=== PATIENT | female | born 1945 | race Caucasian/White ===

== ENCOUNTER 2017-10-25 13:35 | Outpatient (CLI) | payer MEDICARE, BC ==
--- NOTE | 2017-10-25 14:35 | RAD ---
CHEST TWO VIEWS: History: Chest pain. Comparison: 10-14-15 FINDINGS: Lungs are without focal consultation, pneumothorax or effusion. Cardiac silhouette and mediastinal co ntours are within normal limits. Likely some right upper quadrant surgical clips. IMPRESSION: No intrathoracic abnormality. POS: [facility]
== END 2017-10-25 13:36 | disposition home or self-care (01) ==
LOC: RAD 13:35
PROVIDERS: ATTEND Internal Medicine Pulmonary Disease
DX: R06.00 Dyspnea, unspecified (principal)
CPT/HCPCS: 71046

== ENCOUNTER 2018-02-06 10:49 | Outpatient (CLI) | payer MEDICARE, BC ==
--- NOTE | 2018-02-06 12:04 | RAD ---
CHEST TWO VIEWS: HISTORY: Cough. COMPARISON: Chest radiograph from 10/25/2017. FINDINGS: Heart size is mildly enlarged. Lungs are slightly hyperinflated. No pneumothorax. No effusion. No acute osseous abnormality. Chronic interstitial markings in the lung bases. IMPRESSION: Chronic findings. No acute intrathoracic abnormality. POS: [facility]
== END 2018-02-06 10:50 | disposition home or self-care (01) ==
LOC: BICRAD 10:49
PROVIDERS: ATTEND Physician Assistant Medical
DX: J44.9 Chronic obstructive pulmonary disease, unspecified (principal); R05 Cough
CPT/HCPCS: 71046

== ENCOUNTER 2018-11-06 08:55 | Outpatient (CLI) | payer MEDICARE, BC ==
--- NOTE | 2018-11-06 09:35 | CT ---
CT ABDOMEN AND PELVIS WITH IV CONTRAST 11/06/2018 CLINICAL INFORMATION: Left lower quadrant abdominal pain, diarrhea, and indigestion. COMPARISON: None. Technique: Multiple contiguous axial CT images are obtained through the abdomen and pelvis with IV contrast. Cor onal reformatted images are provided. FINDINGS: Lower Chest: within normal limits. Vessels: Vascular calcifications are seen in the abdominal aorta and involving the iliac arteries. Abdomen: Portal vein:Patent Gallbladder: Surgically absent. Liver: within normal limits. Spleen: within normal limits. Pancreas: within normal limits. Adrenals: within normal limits. Kidneys: within normal limits. Bowel: Normal caliber. Appendix: The appendix is visualized and normal in caliber. Peritoneum: No ascites or free air; no fluid collection. Mesentery and Retroperitoneum: No enlarged mesenteric or retroperitoneal lymph nodes. Abdominal Wall: within normal limits. Pelvis: Reproductive Organs: Evidence of hysterectomy. Pelvis within normal limits. Bladder: Decompressed but otherwise grossly within normal limits. Bones: Degenerative changes are seen in the spine. Bilateral hip osteoarthritis is present. A sclerot ic density is seen within the right iliac bone demonstrating characteristics most compatible with a bone island. IMPRESSION: 1. No acute findings are seen in the abdomen or pelvis. 2. Cholecystectomy. 3. Hysterectomy. 4. Vascular calcifications.
[2018-11-06] MEDS ORDERED: ISOVUE-370 76%-LOCM 1 ML ONE (11:10)
== END 2018-11-06 08:56 | disposition home or self-care (01) ==
LOC: BICCT 08:55
PROVIDERS: ATTEND Physician Assistant Medical
DX: K21.9 Gastro-esophageal reflux disease without esophagitis (principal); K52.9 Noninfective gastroenteritis and colitis, unspecified; R10.32 Left lower quadrant pain; I70.0 Atherosclerosis of aorta; Z90.49 Acquired absence of other specified parts of digestive tract; Z90.710 Acquired absence of both cervix and uterus
CPT/HCPCS: 74177; 82565; Q9966

== ENCOUNTER 2019-12-05 11:05 | Outpatient (CLI) | payer MEDICARE, BC ==
--- NOTE | 2019-12-05 12:26 | RAD ---
RADIOGRAPH CHEST 2 VIEWS: DATE: 12/05/2019 HISTORY: 74-year-old female with cough and dyspnea FINDINGS: There is no airspace density, pulmonary edema, pleural effusion, pneumothorax, or cardiomegaly. IMPRESSION: No acute cardiopulmonary findings.
== END 2019-12-05 11:06 | disposition home or self-care (01) ==
LOC: BICRAD 11:05
PROVIDERS: ATTEND Internal Medicine Pulmonary Disease
DX: R06.00 Dyspnea, unspecified (principal)
CPT/HCPCS: 71046

== ENCOUNTER 2020-05-02 18:49 | Inpatient (IN) | payer MEDICARE, BC ==
[2020-05-02] MEDS ORDERED: Ondansetron PF 4 MG/2 ML Vial ONE (20:02)
[2020-05-02] MEDS ORDERED: Meclizine HCl 25 MG TAB ONE (20:02)
[2020-05-02 20:24] LABS: #Eosinphils 0.2 thou/uL (0.0-0.7); #Lymphocytes 0.8 thou/uL (1.20-3.40); #Monocytes 0.4 thou/uL (0.11-0.59); #Neutrophils 4.6 thou/uL (1.40-6.50); %Basophils 0.2 % (0.0-1.0); %Eosinophils 2.8 % (0.0-10.0); %Lymphocytes 13.2 % (21.0-51.0); %Monocytes 7.1 % (0.0-10.0); %Neutrophils 76.7 % (42.0-75.0); Hemoglobin 12.8 g/dL (12.0-16.0); Mean Corpuscular HGB CONC 32.8 g/dL (32.0-36.0); Mean Corpuscular Hemoglobin 29.5 pg (27.0-31.0); Mean Corpuscular Volume 89.9 fL (78.0-98.0); Platelet Count 191 thou/uL (130-400); RBC Distribution Width 12.5 % (11.5-14.5); Red Blood Cell (RBC) Count 4.35 mill/uL (4.20-5.40); White Blood Cell (WBC) Count 6.1 thou/uL (4.8-10.8)
[2020-05-02 20:31] LABS: PTT 31.5 sec (22.9-36.1); Prothrombin Time 13.3 sec (12.0-14.7)
[2020-05-02 20:50] LABS: ALT (SGPT) 15 U/L (8-55); AST (SGOT) 26 U/L (5-34); Albumin 3.4 g/dL (3.4-4.8); Alkaline Phosphatase 84 U/L (40-110); Anion Gap 14 mmol/L (10-20); BUN (Urea Nitrogen) Less than 4 mg/dL (9.8-20.1); Bilirubin, Total 0.4 mg/dL (0.2-1.2); Calc. Creatinine Clearance 0 mL/min (70-130); Calcium 8.4 mg/dL (7.8-10.44); Carbon Dioxide 27 mmol/L (23-31); Chloride 105 mmol/L (98-107); Globulin 3.5 g/dL (2.4-3.5); Glucose 108 mg/dL (83-110); Potassium 4.5 mmol/L (3.5-5.1); Protein, Total 6.9 g/dL (5.8-8.1); Sodium 141 mmol/L (136-145)
[2020-05-02] MEDS ORDERED: Promethazine HCl 25 MG/ML VIAL ONE (22:05)
[2020-05-02] MEDS ORDERED: Lidocaine 1% w/Epinephrine 1:100K 20 ML VIAL ONE (22:33)
[2020-05-02] MEDS ORDERED: Diazepam 10 MG/2 ML SYRINGE ONE ×2 (22:58→23:45)
[2020-05-02] MEDS ORDERED: Ondansetron ODT 4 MG TAB PO PRN (23:10)
[2020-05-02] MEDS ORDERED: Ondansetron PF 4 MG/2 ML Vial IVP PRN (23:10)
[2020-05-02] MEDS ORDERED: Carvedilol 6.25 MG TAB PO SCH (23:30)
[2020-05-02 23:33] LABS: Phosphorus 3.3 mg/dL (2.3-4.7)
[2020-05-02 23:54] LABS: Hemoglobin A1c 5.6 % (4.0-6.0)
[2020-05-02 23:58] LABS: Cardiac Risk 3.4 (Less than 4.5)
[2020-05-03] MEDS ORDERED: Morphine 4 MG/ML VIAL ONE (00:09)
[2020-05-03] MEDS ORDERED: Lidocaine 2% PF 5 ML VIAL ONE (00:39)
[2020-05-03] MEDS ORDERED: Lidocaine 1% PF 5 ML VIAL ONE ×2 (00:40→00:41)
[2020-05-03] MEDS ORDERED: Aspirin Chewable 81 MG TAB ONE (00:45)
[2020-05-03] MEDS ORDERED: Atorvastatin Calcium 40 MG TAB PO SCH (01:00)
[2020-05-03] MEDS ORDERED: Boostrix 0.5 ML (Tdap) VIAL ONE (01:27)
[2020-05-03] MEDS ORDERED: Bacitracin 1 PK ONE ×2 (01:32→01:33)
[2020-05-03] MEDS ORDERED: CEFAZOLIN 1 GM VIAL ONE ×2 (01:47→01:49)
[2020-05-03 03:21] VITALS: BMI 33.5
[2020-05-03 04:57] LABS: Bacteria/HPF None Seen HPF (None Seen); Bilirubin Negative (Negative); Blood, Urine Negative (Negative); Clarity Clear (Clear); Glucose, Urine (Dipstick) Normal (Negative); Ketone, Urine 10 mg/dL (Negative); Leukocyte 500 Leu/uL (Negative); Nitrite Negative (Negative); Protein, Urine (Dipstick) Negative (Neg-Trace); RBC/HPF None Seen HPF (0-3); Specific Gravity, Urine 1.013 (1.002-1.036); Squamous Epithelial 0-3 HPF (0-3); Urobilinogen Normal mg/dL (Less than 2); WBC/HPF 21-50 HPF (0-3)
[2020-05-03 04:59] LABS: Hemoglobin 11.6 g/dL (12.0-16.0); Mean Corpuscular HGB CONC 33.3 g/dL (32.0-36.0); Mean Corpuscular Hemoglobin 29.9 pg (27.0-31.0); Mean Corpuscular Volume 89.9 fL (78.0-98.0); Mean Platelet Volume 8.1 fL (7.4-10.4); Platelet Count 183 thou/uL (130-400); RBC Distribution Width 12.2 % (11.5-14.5); Red Blood Cell (RBC) Count 3.89 mill/uL (4.20-5.40); White Blood Cell (WBC) Count 6.4 thou/uL (4.8-10.8)
[2020-05-03 05:04] LABS: Urine Culture Reflex Yes Yes
[2020-05-03] MEDS: Levothyroxine 150 MCG TAB PO SCH (06:06)
[2020-05-03] MEDS: Acetaminophen 325 MG TAB PO PRN ×3 (06:08→20:36)
[2020-05-03] MEDS ORDERED: cefTRIAXone\\ROCEPHIN 1 GM in Sodium Chloride 0.9% 100 ML IVPB SCH (08:45)
[2020-05-03] MEDS ORDERED: Apixaban 5 MG TAB PO SCH (09:00)
[2020-05-03] MEDS: Aspirin 325 MG TAB PO SCH (10:33)
[2020-05-03] MEDS: Escitalopram Oxalate 10 mg Tablet PO SCH (10:34)
[2020-05-03] MEDS: Carvedilol 6.25 MG TAB PO SCH ×2 (10:34→20:35)
[2020-05-03] MEDS: Ramipril 5 MG CAP PO SCH (10:35)
[2020-05-03 13:47] LABS: SARS-CoV-2 NAA Rapid Test Not Detected (NotDetected)
[2020-05-03 18:18] LABS: Troponin I 0.027 ng/mL (< 0.028)
[2020-05-03] MEDS: Atorvastatin Calcium 40 MG TAB PO SCH (20:35)
[2020-05-04] MEDS: Levothyroxine 150 MCG TAB PO SCH (05:56)
[2020-05-04 06:59] LABS: #Eosinphils 0.5 thou/uL (0.0-0.7); #Lymphocytes 0.9 thou/uL (1.20-3.40); #Monocytes 0.6 thou/uL (0.11-0.59); #Neutrophils 3.8 thou/uL (1.40-6.50); %Basophils 0.6 % (0.0-1.0); %Eosinophils 8.7 % (0.0-10.0); %Lymphocytes 15.3 % (21.0-51.0); %Monocytes 9.8 % (0.0-10.0); %Neutrophils 65.7 % (42.0-75.0); Hemoglobin 11.8 g/dL (12.0-16.0); Mean Corpuscular Volume 90.6 fL (78.0-98.0); Mean Platelet Volume 7.8 fL (7.4-10.4); Platelet Count 190 thou/uL (130-400); RBC Distribution Width 12.7 % (11.5-14.5); Red Blood Cell (RBC) Count 4.06 mill/uL (4.20-5.40); White Blood Cell (WBC) Count 5.7 thou/uL (4.8-10.8)
[2020-05-04 07:16] LABS: Anion Gap 13 mmol/L (10-20); BUN (Urea Nitrogen) 12 mg/dL (9.8-20.1); Calc. Creatinine Clearance 84 mL/min (70-130); Calcium 8.2 mg/dL (7.8-10.44); Carbon Dioxide 23 mmol/L (23-31); Chloride 106 mmol/L (98-107); Glucose 97 mg/dL (83-110); Sodium 138 mmol/L (136-145)
[2020-05-04] MEDS: Escitalopram Oxalate 10 mg Tablet PO SCH (09:26)
[2020-05-04] MEDS: Aspirin 325 MG TAB PO SCH (09:26)
[2020-05-04] MEDS: Carvedilol 6.25 MG TAB PO SCH ×2 (09:26→20:59)
[2020-05-04] MEDS: Ramipril 5 MG CAP PO SCH (09:26)
[2020-05-04] MEDS ORDERED: hydrOXYzine 25 MG TAB PO SCH (09:45)
[2020-05-04] MEDS: Acetaminophen 325 MG TAB PO PRN (18:23)
[2020-05-04] MEDS: Apixaban 5 MG TAB PO SCH (20:59)
[2020-05-04] MEDS: Atorvastatin Calcium 40 MG TAB PO SCH (20:59)
[2020-05-05] MEDS: Acetaminophen 325 MG TAB PO PRN (02:20)
[2020-05-05] MEDS ORDERED: Melatonin 3 MG TAB PO PRN (02:36)
[2020-05-05] MEDS ORDERED: Baclofen 10 MG TAB PO SCH (02:45)
[2020-05-05] MEDS: Levothyroxine 150 MCG TAB PO SCH (05:36)
[2020-05-05] MEDS: Ramipril 5 MG CAP PO SCH (08:45)
[2020-05-05] MEDS: Escitalopram Oxalate 10 mg Tablet PO SCH (08:46)
[2020-05-05] MEDS: Apixaban 5 MG TAB PO SCH (08:46)
[2020-05-05] MEDS: Carvedilol 6.25 MG TAB PO SCH (08:46)
[2020-05-05] MEDS ORDERED: Aspirin 81 mg Enteric Coated Tablet PO SCH (09:00)
[2020-05-05] MEDS ORDERED: Carvedilol 6.25 MG TAB PO SCH ×2 (10:15→17:00)
[2020-05-05 11:57] VITALS: TEMP 98
[2020-05-05 16:09] VITALS: BP 133/56
== END 2020-05-05 14:36 | DRG 41 ==
LOC: ERS 18:49 → 2SE 22:47 → OBSVTOIN 05-03 15:35
PROVIDERS: ADMIT Family Medicine; ATTEND Family Medicine
PROC: 0LQ80ZZ Repair Left Hand Tendon, Open Approach (ICD-10-PCS; principal; 2020-05-03)
PROC: 0XQPXZZ Repair Left Index Finger, External Approach (ICD-10-PCS; 2020-05-03)
PROC: 0XQWXZZ Repair Left Little Finger, External Approach (ICD-10-PCS; 2020-05-03)
DX: I63.511 Cerebral infarction due to unspecified occlusion or stenosis of right middle cerebral artery (principal); N39.0 Urinary tract infection, site not specified; S66.822A Laceration of other specified muscles, fascia and tendons at wrist and hand level, left hand, initial encounter; G81.94 Hemiplegia, unspecified affecting left nondominant side; Z23 Encounter for immunization; Z20.822 Contact with and (suspected) exposure to COVID-19; J44.9 Chronic obstructive pulmonary disease, unspecified; K21.9 Gastro-esophageal reflux disease without esophagitis; E03.9 Hypothyroidism, unspecified; E78.5 Hyperlipidemia, unspecified; R20.2 Paresthesia of skin; E78.00 Pure hypercholesterolemia, unspecified; W18.30XA Fall on same level, unspecified, initial encounter; F17.210 Nicotine dependence, cigarettes, uncomplicated; R29.705 NIHSS score 5; Y92.002 Bathroom of unspecified non-institutional (private) residence as the place of occurrence of the external cause; Z88.8 Allergy status to other drugs, medicaments and biological substances; Z79.01 Long term (current) use of anticoagulants; Z79.82 Long term (current) use of aspirin; Z79.890 Hormone replacement therapy; Z90.49 Acquired absence of other specified parts of digestive tract; Z90.710 Acquired absence of both cervix and uterus; Z79.899 Other long term (current) drug therapy
CPT/HCPCS: 0240U; 12001; 36415; 70450; 70551; 71045; 72125; 80048; 80053; 80061; 81001; 83036; 83735; 84100; 84443; 84484; 85007; 85025; 85027; 85610; 85730; 87086; 90471; 90715; 93005; 93010; 93306; 93880; 94640; 96365; 96375; 96376; G0378; J0690; J0696; J2001; J2270; J2405; J2550; J3360; J3490; J7620

== ENCOUNTER 2020-06-30 10:18 | Outpatient (CLI) | payer MEDICARE, BC | END 2020-06-30 10:19 | disposition home or self-care (01) | LOC: BICRAD 10:18 | PROVIDERS: ATTEND Internal Medicine Pulmonary Disease | DX: R06.00 Dyspnea, unspecified (principal) | CPT/HCPCS: 71046 ==

== ENCOUNTER → 2020-08-03 | Day surgery (SDC) | payer MEDICARE, BC ==
[2020-08-02 14:09] VITALS: BMI 32.1
== END ==
LOC: SDC 10:39
PROVIDERS: ATTEND Internal Medicine Cardiovascular Disease
DX: I48.0 Paroxysmal atrial fibrillation (principal); I48.92 Unspecified atrial flutter; I35.1 Nonrheumatic aortic (valve) insufficiency; I10 Essential (primary) hypertension; E78.5 Hyperlipidemia, unspecified; E03.9 Hypothyroidism, unspecified; J44.9 Chronic obstructive pulmonary disease, unspecified; Z53.8 Procedure and treatment not carried out for other reasons; Z86.73 Personal history of transient ischemic attack (TIA), and cerebral infarction without residual deficits; Z87.891 Personal history of nicotine dependence; Z79.01 Long term (current) use of anticoagulants; Z79.82 Long term (current) use of aspirin; Z79.899 Other long term (current) drug therapy; Z88.5 Allergy status to narcotic agent
CPT/HCPCS: 93005; 93010

== ENCOUNTER 2022-09-20 17:38 | Inpatient (IN) | payer MEDICARE, BC ==
[2022-09-20 18:11] LABS: #Monocytes 0.5 thou/uL (0.11-0.59); %Basophils 0.3 % (0.0-1.0); %Eosinophils 0.1 % (0.0-10.0); %Lymphocytes 8.5 % (21.0-51.0); %Monocytes 4.5 % (0.0-10.0); Hematocrit 39.2 % (36.0-47.0); Hemoglobin 12.5 g/dL (12.0-16.0); Mean Corpuscular HGB CONC 31.9 g/dL (32.0-36.0); Mean Corpuscular Hemoglobin 27.8 pg (27.0-31.0); Mean Corpuscular Volume 87.1 fl (78.0-98.0); Mean Platelet Volume 10.2 fL (7.4-10.4); Platelet Count 300 10x3/uL (130-400); RBC Distribution Width 14.1 % (11.5-14.5); White Blood Cell (WBC) Count 10.4 10x3/uL (4.8-10.8)
[2022-09-20 18:24] LABS: INR-International Normal Ratio 1.1; PTT 27.6 sec (22.9-36.1); Prothrombin Time 14.6 sec (12.0-14.7)
[2022-09-20 19:00] LABS: Bacteria/HPF None Seen HPF (None Seen); Bilirubin Negative (Negative); Blood, Urine Negative (Negative); CAUTI Indications for Culture Dysuria,urgency,freq; Clarity Clear (Clear); Glucose, Urine (Dipstick) Normal (Negative); Ketone, Urine Negative (Negative); Leukocyte Negative Leu/uL (Negative); Nitrite Negative (Negative); Protein, Urine (Dipstick) 10 mg/dL (Neg-Trace); RBC/HPF 0-3 HPF (0-3); Specific Gravity, Urine 1.027 (1.002-1.036); Squamous Epithelial 0-3 HPF (0-3); WBC/HPF 0-3 HPF (0-3)
[2022-09-20 19:03] LABS: Urine Culture Reflex No No
[2022-09-20 19:09] LABS: ALT (SGPT) 11 U/L (8-55); AST (SGOT) 15 U/L (5-34); Albumin 3.6 g/dL (3.4-4.8); Alkaline Phosphatase 49 U/L (40-110); Anion Gap 13 mmol/L (10-20); BUN (Urea Nitrogen) 21 mg/dL (9.8-20.1); Bilirubin, Total 0.3 mg/dL (0.2-1.2); CK (CPK) 39 U/L (29-168); Calc. Creatinine Clearance 0 mL/min (70-130); Calcium 8.8 mg/dL (7.8-10.44); Carbon Dioxide 29 mmol/L (23-31); Chloride 103 mmol/L (98-107); Estimated GFR 62; Globulin 2.9 g/dL (2.4-3.5); Glucose 76 mg/dL (83-110); Lipase 23 U/L (8-78); Protein, Total 6.5 g/dL (5.8-8.1); Sodium 140 mmol/L (136-145)
[2022-09-20] MEDS ORDERED: Furosemide 40 MG/4 ML VIAL ONE (19:33)
[2022-09-20 21:44] VITALS: BMI 31.9
[2022-09-20 22:29] LABS: Troponin I 0.014 ng/mL (< 0.028)
[2022-09-20] MEDS ORDERED: Furosemide 20 MG TAB PO PRN (22:58)
[2022-09-21 00:36] LABS: Troponin I 0.038 ng/mL (< 0.028)
[2022-09-21 04:27] LABS: #Eosinphils 0.1 thou/uL (0.0-0.7); #Monocytes 0.8 thou/uL (0.11-0.59); #Neutrophils 7.1 thou/uL (1.40-6.50); %Basophils 0.3 % (0.0-1.0); %Eosinophils 0.7 % (0.0-10.0); %Lymphocytes 15.6 % (21.0-51.0); %Monocytes 7.9 % (0.0-10.0); Hematocrit 37.3 % (36.0-47.0); Hemoglobin 11.5 g/dL (12.0-16.0); Mean Corpuscular HGB CONC 30.8 g/dL (32.0-36.0); Mean Corpuscular Hemoglobin 27.1 pg (27.0-31.0); Mean Corpuscular Volume 87.8 fl (78.0-98.0); Mean Platelet Volume 10.3 fL (7.4-10.4); Platelet Count 219 10x3/uL (130-400); Red Blood Cell (RBC) Count 4.25 mill/uL (4.20-5.40); White Blood Cell (WBC) Count 9.5 10x3/uL (4.8-10.8)
[2022-09-21 05:04] LABS: Anion Gap 12 mmol/L (10-20); BUN (Urea Nitrogen) 20 mg/dL (9.8-20.1); Calc. Creatinine Clearance 68 mL/min (70-130); Calcium 8.6 mg/dL (7.8-10.44); Carbon Dioxide 33 mmol/L (23-31); Chloride 101 mmol/L (98-107); Estimated GFR 59; Glucose 91 mg/dL (83-110); Potassium 4.4 mmol/L (3.5-5.1); Sodium 142 mmol/L (136-145)
[2022-09-21] MEDS ORDERED: Levothyroxine 150 MCG TAB PO SCH (06:00)
[2022-09-21 07:51] LABS: Troponin I 0.057 ng/mL (< 0.028)
[2022-09-21] MEDS: Carvedilol 6.25 MG TAB PO SCH ×2 (08:08→16:50)
[2022-09-21] MEDS ORDERED: Flecainide 50 MG TAB PO SCH (09:00)
[2022-09-21] MEDS ORDERED: Apixaban 5 MG TAB PO SCH (09:00)
[2022-09-21] MEDS ORDERED: Escitalopram Oxalate 10 mg Tablet PO SCH (09:00)
[2022-09-21] MEDS ORDERED: Aspirin 81 mg Enteric Coated Tablet PO SCH (09:00)
[2022-09-21] MEDS ORDERED: Ramipril 5 MG CAP PO SCH ×2 (09:00→21:00)
[2022-09-21 16:03] VITALS: TEMP 97.2
[2022-09-21 16:55] VITALS: BP 167/71
[2022-09-21] MEDS ORDERED: predniSONE 5 MG TAB PO PRN (16:55)
[2022-09-22] MEDS ORDERED: predniSONE 20 MG TAB PO SCH (08:00)
[2022-09-22] MEDS ORDERED: Furosemide 20 MG TAB PO SCH (09:00)
== END 2022-09-21 19:23 | disposition home or self-care (01) | DRG 291 ==
LOC: ERS 17:38 → 2NO 19:35 → OBSVTOIN 09-21 16:52
PROVIDERS: ADMIT Student in an Organized Health Care Education/Training Program; ATTEND Student in an Organized Health Care Education/Training Program
DX: I11.0 Hypertensive heart disease with heart failure (principal); I50.33 Acute on chronic diastolic (congestive) heart failure; I24.8 Other forms of acute ischemic heart disease; I69.354 Hemiplegia and hemiparesis following cerebral infarction affecting left non-dominant side; I27.20 Pulmonary hypertension, unspecified; E03.9 Hypothyroidism, unspecified; J44.9 Chronic obstructive pulmonary disease, unspecified; Z90.49 Acquired absence of other specified parts of digestive tract; I48.0 Paroxysmal atrial fibrillation; K21.9 Gastro-esophageal reflux disease without esophagitis; E78.00 Pure hypercholesterolemia, unspecified; Z88.6 Allergy status to analgesic agent; Z79.01 Long term (current) use of anticoagulants; Z79.82 Long term (current) use of aspirin; Z79.890 Hormone replacement therapy; Z79.52 Long term (current) use of systemic steroids; Z79.899 Other long term (current) drug therapy; Z90.710 Acquired absence of both cervix and uterus; Z87.891 Personal history of nicotine dependence; Z91.148 Patient's other noncompliance with medication regimen for other reason
CPT/HCPCS: 36415; 70450; 71046; 80048; 80053; 81001; 82550; 83690; 83880; 84484; 85025; 85610; 85730; 93005; 93010; 96374; G0378; J1940

== ENCOUNTER 2022-11-02 13:23 | Outpatient (CLI) | payer MEDICARE, BC | END 2022-11-02 13:24 | disposition home or self-care (01) | LOC: ULT 13:23 | PROVIDERS: ATTEND Physician Assistant | DX: I48.0 Paroxysmal atrial fibrillation (principal); I08.3 Combined rheumatic disorders of mitral, aortic and tricuspid valves | CPT/HCPCS: 93306 ==

== ENCOUNTER 2022-11-16 08:27 | Outpatient (CLI) | payer MEDICARE, BC | END 2022-11-16 08:28 | disposition home or self-care (01) | LOC: RAD 08:27 | PROVIDERS: ATTEND Internal Medicine Rheumatology | DX: M47.897 Other spondylosis, lumbosacral region (principal); M47.816 Spondylosis without myelopathy or radiculopathy, lumbar region | CPT/HCPCS: 72110 ==

== ENCOUNTER 2022-12-16 16:49 | Inpatient (IN) | payer MEDICARE, BC ==
[~2022-12-16 16:49] MED LIST: Iopamidol-370 76% 500 ML MDV (1 ML CHARGE) ONE
[2022-12-16 17:36] LABS: #Monocytes 1.2 thou/uL (0.11-0.59); #Neutrophils 14.2 thou/uL (1.40-6.50); %Basophils 0.1 % (0.0-1.0); %Eosinophils 0.1 % (0.0-10.0); %Lymphocytes 4.8 % (21.0-51.0); %Monocytes 7.4 % (0.0-10.0); Mean Corpuscular HGB CONC 32.5 g/dL (32.0-36.0); Mean Corpuscular Hemoglobin 26.8 pg (27.0-31.0); Mean Corpuscular Volume 82.5 fl (78.0-98.0); Mean Platelet Volume 10.4 fL (7.4-10.4); Platelet Count 294 10x3/uL (130-400); RBC Distribution Width 14.8 % (11.5-14.5); Red Blood Cell (RBC) Count 4.85 mill/uL (4.20-5.40); White Blood Cell (WBC) Count 16.3 10x3/uL (4.8-10.8)
[2022-12-16 18:01] LABS: ALT (SGPT) 14 U/L (8-55); AST (SGOT) 16 U/L (5-34); Albumin 3.6 g/dL (3.4-4.8); Alkaline Phosphatase 99 U/L (40-110); Anion Gap 16 mmol/L (10-20); BUN (Urea Nitrogen) 31 mg/dL (9.8-20.1); Bilirubin, Total 0.7 mg/dL (0.2-1.2); Calc. Creatinine Clearance 0 mL/min (70-130); Calcium 9.7 mg/dL (7.8-10.44); Carbon Dioxide 35 mmol/L (23-31); Chloride 87 mmol/L (98-107); Estimated GFR 62; Globulin 3.3 g/dL (2.4-3.5); Glucose 83 mg/dL (83-110); Potassium 2.9 mmol/L (3.5-5.1); Protein, Total 6.9 g/dL (5.8-8.1); Sodium 135 mmol/L (136-145)
[2022-12-16 18:36] LABS: Lipase 20 U/L (8-78); Magnesium 2.1 mg/dL (1.6-2.6)
[2022-12-16 18:38] LABS: INR-International Normal Ratio 2.1; Prothrombin Time 24.6 sec (12.0-14.7)
[2022-12-16 18:39] LABS: PTT 42.6 sec (22.9-36.1)
[2022-12-16] MEDS ORDERED: Furosemide 40 MG/4 ML VIAL ONE (18:50)
[2022-12-16] MEDS ORDERED: Potassium Bicarbonate/Cit Ac 20 MEQ TAB ONE (18:50)
[2022-12-16] MEDS ORDERED: Cefepime 2 GM VIAL ONE (18:52)
[2022-12-16] MEDS ORDERED: Ondansetron PF 4 MG/2 ML Vial IVP PRN (22:49)
[2022-12-16] MEDS ORDERED: Ondansetron ODT 4 MG TAB PO PRN (22:49)
[2022-12-16] MEDS ORDERED: Albuterol 200 PUFF (6.7GM INHALER) INH PRN (23:07)
[2022-12-16] MEDS ORDERED: Vancomycin (BATCH) 1.5 GM in Premix 1 BAG IVPB SCH (23:15)
[2022-12-16] MEDS ORDERED: Ipratropium Bromide 2.5 ml Neb NEB PRN (23:18)
[2022-12-16 23:49] VITALS: BMI 31.6
[2022-12-16] MEDS ORDERED: Potassium Chloride 20 MEQ TAB ONE (23:58)
[2022-12-17] MEDS: Potassium Chloride 20 MEQ TAB PO SCH ×3 (00:13→11:00)
[2022-12-17] MEDS: Diazepam 2 MG TAB PO PRN (00:23)
[2022-12-17] MEDS ORDERED: traMADol HCl 50 MG TAB ONE ×2 (02:20→09:08)
[2022-12-17 05:27] LABS: #Monocytes 1.1 thou/uL (0.11-0.59); #Neutrophils 12.4 thou/uL (1.40-6.50); %Basophils 0.2 % (0.0-1.0); %Eosinophils 0.1 % (0.0-10.0); %Lymphocytes 4.2 % (21.0-51.0); %Neutrophils 86.9 % (42.0-75.0); Hematocrit 37.4 % (36.0-47.0); Mean Corpuscular HGB CONC 32.1 g/dL (32.0-36.0); Mean Corpuscular Hemoglobin 26.8 pg (27.0-31.0); Mean Corpuscular Volume 83.7 fl (78.0-98.0); Mean Platelet Volume 10.6 fL (7.4-10.4); Platelet Count 244 10x3/uL (130-400); Red Blood Cell (RBC) Count 4.47 mill/uL (4.20-5.40); White Blood Cell (WBC) Count 14.3 10x3/uL (4.8-10.8)
[2022-12-17] MEDS ORDERED: Potassium Chloride 20 MEQ TAB PO SCH ×2 (06:00→06:30)
[2022-12-17 06:16] LABS: Anion Gap 16 mmol/L (10-20); BUN (Urea Nitrogen) 27 mg/dL (9.8-20.1); Calc. Creatinine Clearance 63 mL/min (70-130); Calcium 8.9 mg/dL (7.8-10.44); Carbon Dioxide 34 mmol/L (23-31); Chloride 89 mmol/L (98-107); Estimated GFR 57; Glucose 102 mg/dL (83-110); Potassium 3.1 mmol/L (3.5-5.1); Sodium 136 mmol/L (136-145)
[2022-12-17] MEDS ORDERED: Potassium Chloride 20 MEQ TAB ONE ×2 (06:44)
[2022-12-17] MEDS ORDERED: Levothyroxine Sodium 75 MCG TAB ONE (06:46)
[2022-12-17] MEDS: Levothyroxine 150 MCG TAB PO SCH (06:53)
[2022-12-17] MEDS ORDERED: Furosemide 100 MG/10 ML VIAL SLOW IVP SCH (09:00)
[2022-12-17] MEDS ORDERED: Bumetanide 1 MG TAB PO SCH (09:00)
[2022-12-17] MEDS ORDERED: Carvedilol 25 MG TAB PO SCH (09:00)
[2022-12-17] MEDS ORDERED: Vancomycin 1.5 GM in Sodium Chloride 0.9% 250 ML 300 ML IVPB SCH (09:00)
[2022-12-17] MEDS ORDERED: Escitalopram Oxalate 10 mg Tablet PO SCH (09:00)
[2022-12-17] MEDS ORDERED: Cefepime 1 GM in Sodium Chloride 0.9% 100 ML IVPB SCH (09:00)
[2022-12-17] MEDS ORDERED: traMADol HCl 50 MG TAB PO SCH ×2 (09:30→21:00)
[2022-12-17] MEDS ORDERED: Furosemide 40 MG/4 ML VIAL SLOW IVP SCH (10:30)
[2022-12-17] MEDS: Carvedilol 25 MG TAB PO SCH ×2 (10:52→17:30)
[2022-12-17] MEDS: dilTIAZem CD 180 MG CAP PO SCH (10:53)
[2022-12-17] MEDS: Apixaban 5 MG TAB PO SCH ×2 (10:53→20:25)
[2022-12-17] MEDS: Aspirin 81 mg Enteric Coated Tablet PO SCH (10:53)
[2022-12-17] MEDS: Cholecalciferol 1,000 UNITS (25 MCG) TAB PO SCH (10:53)
[2022-12-17] MEDS: Furosemide 40 MG/4 ML VIAL SLOW IVP SCH (14:14)
[2022-12-17] MEDS: Cefepime 1 GM in Sodium Chloride 0.9% 100 ML IVPB SCH (14:14)
[2022-12-17 15:17] LABS: Potassium 4.2 mmol/L (3.5-5.1)
[2022-12-17] MEDS: Vancomycin (BATCH) 1.25 GM in Premix 1 BAG IVPB SCH (22:30)
[2022-12-18] MEDS: Cefepime 1 GM in Sodium Chloride 0.9% 100 ML IVPB SCH ×2 (02:45→13:00)
[2022-12-18 04:29] LABS: #Eosinphils 0.1 thou/uL (0.0-0.7); #Monocytes 0.8 thou/uL (0.11-0.59); #Neutrophils 8.9 thou/uL (1.40-6.50); %Basophils 0.3 % (0.0-1.0); %Eosinophils 0.8 % (0.0-10.0); %Lymphocytes 5.3 % (21.0-51.0); %Monocytes 7.4 % (0.0-10.0); %Neutrophils 85.7 % (42.0-75.0); Hematocrit 34.7 % (36.0-47.0); Mean Corpuscular HGB CONC 31.7 g/dL (32.0-36.0); Mean Corpuscular Hemoglobin 26.8 pg (27.0-31.0); Mean Corpuscular Volume 84.6 fl (78.0-98.0); Mean Platelet Volume 10.4 fL (7.4-10.4); Platelet Count 218 10x3/uL (130-400); RBC Distribution Width 14.9 % (11.5-14.5); White Blood Cell (WBC) Count 10.4 10x3/uL (4.8-10.8)
[2022-12-18 05:03] LABS: Anion Gap 15 mmol/L (10-20); BUN (Urea Nitrogen) 30 mg/dL (9.8-20.1); Calc. Creatinine Clearance 63 mL/min (70-130); Calcium 8.9 mg/dL (7.8-10.44); Carbon Dioxide 36 mmol/L (23-31); Chloride 89 mmol/L (98-107); Estimated GFR 57; Glucose 102 mg/dL (83-110); Potassium 3.5 mmol/L (3.5-5.1); Sodium 136 mmol/L (136-145)
[2022-12-18] MEDS: Furosemide 40 MG/4 ML VIAL SLOW IVP SCH ×2 (06:05→13:01)
[2022-12-18] MEDS: Levothyroxine 150 MCG TAB PO SCH (06:05)
[2022-12-18] MEDS: Aspirin 81 mg Enteric Coated Tablet PO SCH (08:35)
[2022-12-18] MEDS: Apixaban 5 MG TAB PO SCH ×2 (08:35→20:25)
[2022-12-18] MEDS: Cholecalciferol 1,000 UNITS (25 MCG) TAB PO SCH (08:35)
[2022-12-18] MEDS: Potassium Chloride 20 MEQ TAB PO SCH (08:36)
[2022-12-18] MEDS: dilTIAZem CD 180 MG CAP PO SCH (08:36)
[2022-12-18] MEDS: Carvedilol 25 MG TAB PO SCH ×2 (08:36→16:15)
[2022-12-18] MEDS ORDERED: Bumetanide 1 MG TAB PO SCH (09:00)
[2022-12-18] MEDS: Diazepam 2 MG TAB PO PRN ×2 (09:49→20:25)
[2022-12-18] MEDS: traMADol HCl 50 MG TAB PO PRN (15:50)
[2022-12-18] MEDS ORDERED: Morphine 2 MG/ML VIAL SLOW IVP PRN (16:34)
[2022-12-18] MEDS ORDERED: Ondansetron ODT 4 MG TAB PO PRN (17:49)
[2022-12-18 22:13] LABS: Vancomycin, Trough 14.5 ug/mL
[2022-12-18] MEDS: Vancomycin (BATCH) 1.25 GM in Premix 1 BAG IVPB SCH (22:40)
[2022-12-19] MEDS: Cefepime 1 GM in Sodium Chloride 0.9% 100 ML IVPB SCH (02:53)
[2022-12-19 04:26] LABS: #Eosinphils 0.2 thou/uL (0.0-0.7); #Monocytes 0.7 thou/uL (0.11-0.59); #Neutrophils 8.5 thou/uL (1.40-6.50); %Basophils 0.3 % (0.0-1.0); %Eosinophils 1.6 % (0.0-10.0); %Lymphocytes 6.4 % (21.0-51.0); %Neutrophils 84.1 % (42.0-75.0); Hematocrit 34.9 % (36.0-47.0); Hemoglobin 10.9 g/dL (12.0-16.0); Mean Corpuscular HGB CONC 31.2 g/dL (32.0-36.0); Mean Corpuscular Hemoglobin 26.7 pg (27.0-31.0); Mean Corpuscular Volume 85.5 fl (78.0-98.0); Mean Platelet Volume 10.4 fL (7.4-10.4); Platelet Count 203 10x3/uL (130-400); RBC Distribution Width 14.9 % (11.5-14.5); Red Blood Cell (RBC) Count 4.08 mill/uL (4.20-5.40); White Blood Cell (WBC) Count 10.1 10x3/uL (4.8-10.8)
[2022-12-19 04:51] LABS: BUN (Urea Nitrogen) 27 mg/dL (9.8-20.1); Calc. Creatinine Clearance 70 mL/min (70-130); Calcium 8.9 mg/dL (7.8-10.44); Estimated GFR 63; Glucose 99 mg/dL (83-110)
[2022-12-19 05:00] LABS: Anion Gap 16 mmol/L (10-20); Carbon Dioxide 37 mmol/L (23-31); Chloride 85 mmol/L (98-107); Potassium 2.8 mmol/L (3.5-5.1); Sodium 135 mmol/L (136-145)
[2022-12-19] MEDS: Levothyroxine 150 MCG TAB PO SCH (06:11)
[2022-12-19] MEDS: Potassium Chloride 20 MEQ in Premix 1 BAG IVPB SCH ×2 (06:20→13:00)
[2022-12-19] MEDS ORDERED: Bumetanide 1 MG TAB PO SCH ×2 (07:30→09:00)
[2022-12-19] MEDS: Potassium Chloride 20 MEQ TAB PO SCH (07:46)
[2022-12-19] MEDS ORDERED: Furosemide 40 MG/4 ML VIAL SLOW IVP SCH (09:00)
[2022-12-19] MEDS: Aspirin 81 mg Enteric Coated Tablet PO SCH (09:03)
[2022-12-19] MEDS: Carvedilol 25 MG TAB PO SCH ×2 (09:03→16:08)
[2022-12-19] MEDS: dilTIAZem CD 180 MG CAP PO SCH (09:03)
[2022-12-19] MEDS: Apixaban 5 MG TAB PO SCH ×2 (09:05→21:17)
[2022-12-19] MEDS ORDERED: Potassium Chloride 20 MEQ TAB PO SCH (10:00)
[2022-12-19] MEDS: traMADol HCl 50 MG TAB PO PRN ×2 (10:04→17:58)
[2022-12-19] MEDS: Cholecalciferol 1,000 UNITS (25 MCG) TAB PO SCH (10:05)
[2022-12-19] MEDS: Diazepam 2 MG TAB PO PRN (10:05)
[2022-12-19] MEDS ORDERED: Diazepam 2 MG TAB PO SCH (10:15)
[2022-12-19] MEDS: Doxycycline 100 MG CAP PO SCH ×2 (13:42→21:17)
[2022-12-19 13:49] LABS: ALT (SGPT) 13 U/L (8-55); AST (SGOT) 17 U/L (5-34); Albumin 3.1 g/dL (3.4-4.8); Alkaline Phosphatase 78 U/L (40-110); BUN (Urea Nitrogen) 27 mg/dL (9.8-20.1); Bilirubin, Total 0.3 mg/dL (0.2-1.2); Calc. Creatinine Clearance 63 mL/min (70-130); Calcium 9.3 mg/dL (7.8-10.44); Estimated GFR 57; Globulin 2.9 g/dL (2.4-3.5); Glucose 146 mg/dL (83-110)
[2022-12-19 13:58] LABS: Anion Gap 18 mmol/L (10-20); Carbon Dioxide 36 mmol/L (23-31); Chloride 85 mmol/L (98-107); Potassium 3.5 mmol/L (3.5-5.1); Sodium 135 mmol/L (136-145)
[2022-12-19] MEDS: Ciprofloxacin 500 MG TAB PO SCH (21:17)
[2022-12-20 04:10] LABS: #Eosinphils 0.2 thou/uL (0.0-0.7); #Monocytes 0.8 thou/uL (0.11-0.59); %Basophils 0.1 % (0.0-1.0); %Eosinophils 2.4 % (0.0-10.0); %Lymphocytes 5.9 % (21.0-51.0); %Monocytes 7.8 % (0.0-10.0); %Neutrophils 83.1 % (42.0-75.0); Hematocrit 34.1 % (36.0-47.0); Hemoglobin 10.7 g/dL (12.0-16.0); Mean Corpuscular HGB CONC 31.4 g/dL (32.0-36.0); Mean Corpuscular Hemoglobin 27.2 pg (27.0-31.0); Mean Corpuscular Volume 86.8 fl (78.0-98.0); Mean Platelet Volume 10.7 fL (7.4-10.4); Platelet Count 224 10x3/uL (130-400); RBC Distribution Width 14.9 % (11.5-14.5); Red Blood Cell (RBC) Count 3.93 mill/uL (4.20-5.40); White Blood Cell (WBC) Count 9.6 10x3/uL (4.8-10.8)
[2022-12-20 04:35] LABS: BUN (Urea Nitrogen) 30 mg/dL (9.8-20.1); Calc. Creatinine Clearance 56 mL/min (70-130); Calcium 8.9 mg/dL (7.8-10.44); Estimated GFR 49; Glucose 125 mg/dL (83-110)
[2022-12-20 04:45] LABS: Chloride 87 mmol/L (98-107); Potassium 3.4 mmol/L (3.5-5.1); Sodium 138 mmol/L (136-145)
[2022-12-20 04:47] LABS: Anion Gap 17 mmol/L (10-20); Carbon Dioxide 37 mmol/L (23-31)
[2022-12-20] MEDS: Ciprofloxacin 500 MG TAB PO SCH ×2 (05:26→20:01)
[2022-12-20] MEDS: Levothyroxine 150 MCG TAB PO SCH (05:26)
[2022-12-20] MEDS: Diazepam 2 MG TAB PO PRN (08:30)
[2022-12-20] MEDS: Apixaban 5 MG TAB PO SCH ×2 (08:31→20:01)
[2022-12-20] MEDS: Doxycycline 100 MG CAP PO SCH ×2 (08:31→20:01)
[2022-12-20] MEDS: dilTIAZem CD 180 MG CAP PO SCH (08:31)
[2022-12-20] MEDS: Cholecalciferol 1,000 UNITS (25 MCG) TAB PO SCH (08:31)
[2022-12-20] MEDS: Carvedilol 25 MG TAB PO SCH ×2 (08:31→15:46)
[2022-12-20] MEDS: Aspirin 81 mg Enteric Coated Tablet PO SCH (08:31)
[2022-12-20] MEDS: Potassium Chloride 20 MEQ TAB PO SCH (08:31)
[2022-12-20] MEDS: traMADol HCl 50 MG TAB PO PRN ×2 (13:36→20:01)
[2022-12-20] MEDS: Bumetanide 1 MG TAB PO SCH (13:37)
[2022-12-20] MEDS ORDERED: Senokot S 8.6-50 MG TAB PO SCH (15:30)
[2022-12-20] MEDS ORDERED: Polyethylene Glycol 3350 17 GM Packet PO SCH (15:30)
[2022-12-21] MEDS: Diazepam 2 MG TAB PO PRN (02:40)
[2022-12-21 04:47] LABS: #Eosinphils 0.3 thou/uL (0.0-0.7); #Monocytes 0.8 thou/uL (0.11-0.59); #Neutrophils 7.7 thou/uL (1.40-6.50); %Basophils 0.2 % (0.0-1.0); %Eosinophils 2.6 % (0.0-10.0); %Lymphocytes 7.2 % (21.0-51.0); %Monocytes 8.3 % (0.0-10.0); Hemoglobin 11.2 g/dL (12.0-16.0); Mean Corpuscular HGB CONC 31.1 g/dL (32.0-36.0); Mean Corpuscular Hemoglobin 27.3 pg (27.0-31.0); Mean Corpuscular Volume 87.6 fl (78.0-98.0); Mean Platelet Volume 10.5 fL (7.4-10.4); Platelet Count 241 10x3/uL (130-400); RBC Distribution Width 15.1 % (11.5-14.5); Red Blood Cell (RBC) Count 4.11 mill/uL (4.20-5.40); White Blood Cell (WBC) Count 9.5 10x3/uL (4.8-10.8)
[2022-12-21 05:07] LABS: BUN (Urea Nitrogen) 27 mg/dL (9.8-20.1); Calc. Creatinine Clearance 62 mL/min (70-130); Calcium 9.3 mg/dL (7.8-10.44); Estimated GFR 55; Glucose 108 mg/dL (83-110)
[2022-12-21 05:18] LABS: Anion Gap 16 mmol/L (10-20); Carbon Dioxide 37 mmol/L (23-31); Chloride 88 mmol/L (98-107); Potassium 3.8 mmol/L (3.5-5.1); Sodium 137 mmol/L (136-145)
[2022-12-21] MEDS: Ciprofloxacin 500 MG TAB PO SCH (06:00)
[2022-12-21] MEDS: Levothyroxine 150 MCG TAB PO SCH (06:00)
[2022-12-21 09:50] VITALS: BP 135/60; TEMP 97.8
[2022-12-21] MEDS: dilTIAZem CD 180 MG CAP PO SCH (09:50)
[2022-12-21] MEDS: Doxycycline 100 MG CAP PO SCH (09:50)
[2022-12-21] MEDS: Cholecalciferol 1,000 UNITS (25 MCG) TAB PO SCH (09:51)
[2022-12-21] MEDS: Potassium Chloride 20 MEQ TAB PO SCH (09:51)
[2022-12-21] MEDS: Apixaban 5 MG TAB PO SCH (09:52)
[2022-12-21] MEDS: Bumetanide 1 MG TAB PO SCH (09:52)
[2022-12-21] MEDS: Carvedilol 25 MG TAB PO SCH (09:52)
[2022-12-21] MEDS: Aspirin 81 mg Enteric Coated Tablet PO SCH (09:52)
[2022-12-21] MEDS ORDERED: Senokot S 8.6-50 MG TAB PO SCH (10:00)
[2022-12-21] MEDS ORDERED: Bisacodyl 10 MG SUPP PR SCH ×2 (10:15→10:45)
== END 2022-12-21 11:27 | DRG 871 ==
LOC: ERS 16:49 → ERHOLD 22:14 → 2NO 12-17 13:14
PROVIDERS: ADMIT Student in an Organized Health Care Education/Training Program; ATTEND Student in an Organized Health Care Education/Training Program
DX: A41.9 Sepsis, unspecified organism (principal); I50.33 Acute on chronic diastolic (congestive) heart failure; J96.01 Acute respiratory failure with hypoxia; L03.115 Cellulitis of right lower limb; F19.20 Other psychoactive substance dependence, uncomplicated; E87.3 Alkalosis; L97.319 Non-pressure chronic ulcer of right ankle with unspecified severity; J44.9 Chronic obstructive pulmonary disease, unspecified; I48.91 Unspecified atrial fibrillation; E03.9 Hypothyroidism, unspecified; F32.A Depression, unspecified; S91.301A Unspecified open wound, right foot, initial encounter; E87.6 Hypokalemia; E78.00 Pure hypercholesterolemia, unspecified; F41.0 Panic disorder [episodic paroxysmal anxiety]; F41.1 Generalized anxiety disorder; E87.70 Fluid overload, unspecified; K59.00 Constipation, unspecified; Z90.710 Acquired absence of both cervix and uterus; Z88.5 Allergy status to narcotic agent; Z79.82 Long term (current) use of aspirin; Z79.890 Hormone replacement therapy; Z79.899 Other long term (current) drug therapy; Z86.73 Personal history of transient ischemic attack (TIA), and cerebral infarction without residual deficits
CPT/HCPCS: 36415; 74177; 80048; 80053; 80202; 83605; 83690; 83735; 83880; 84100; 84443; 85025; 85610; 85730; 86140; 87040; 93005; 93923; 93970; 94640; 94760; 96365; 96366; 96367; 96375; 97139; J0692; J1940; J2272; J3370; J3490; Q0162; Q9967

== ENCOUNTER 2023-02-06 10:53 | Inpatient (IN) | payer MEDICARE, BC ==
[2023-02-06 11:30] LABS: #Eosinphils 0.1 thou/uL (0.0-0.7); #Monocytes 0.8 thou/uL (0.11-0.59); #Neutrophils 6.3 thou/uL (1.40-6.50); %Basophils 0.4 % (0.0-1.0); %Eosinophils 1.4 % (0.0-10.0); %Neutrophils 78.7 % (42.0-75.0); Hematocrit 28.6 % (36.0-47.0); Hemoglobin 9.2 g/dL (12.0-16.0); Mean Corpuscular HGB CONC 32.2 g/dL (32.0-36.0); Mean Corpuscular Hemoglobin 27.8 pg (27.0-31.0); Mean Corpuscular Volume 86.4 fl (78.0-98.0); Mean Platelet Volume 10.4 fL (7.4-10.4); Platelet Count 232 10x3/uL (130-400); Red Blood Cell (RBC) Count 3.31 mill/uL (4.20-5.40)
[2023-02-06 11:52] LABS: ALT (SGPT) 28 U/L (8-55); AST (SGOT) 45 U/L (5-34); Albumin 3.1 g/dL (3.4-4.8); Alkaline Phosphatase 72 U/L (40-110); Anion Gap 16 mmol/L (10-20); BUN (Urea Nitrogen) 41 mg/dL (9.8-20.1); Bilirubin, Total 1.2 mg/dL (0.2-1.2); Calc. Creatinine Clearance 0 mL/min (70-130); Calcium 8.8 mg/dL (7.8-10.44); Carbon Dioxide 36 mmol/L (23-31); Chloride 85 mmol/L (98-107); Estimated GFR 31; Globulin 3.2 g/dL (2.4-3.5); Glucose 92 mg/dL (83-110); Potassium 2.8 mmol/L (3.5-5.1); Protein, Total 6.3 g/dL (5.8-8.1); Sodium 134 mmol/L (136-145)
[2023-02-06 11:53] LABS: Troponin I 0.104 ng/mL (< 0.028)
[2023-02-06] MEDS ORDERED: Potassium Chloride 20 MEQ TAB ONE (12:40)
[2023-02-06] MEDS ORDERED: Aspirin Chewable 81 MG TAB ONE (12:40)
[2023-02-06] MEDS ORDERED: Furosemide 40 MG/4 ML VIAL ONE (12:40)
[2023-02-06 13:08] LABS: Bacteria/HPF 2+ HPF (None Seen); Bilirubin Negative (Negative); Blood, Urine Negative (Negative); CAUTI Indications for Culture Pelvic or flank pain; Clarity Clear (Clear); Glucose, Urine (Dipstick) Normal (Negative); Ketone, Urine Negative (Negative); Leukocyte 500 Leu/uL (Negative); Nitrite 2+ (Negative); Protein, Urine (Dipstick) 10 mg/dL (Neg-Trace); RBC/HPF 0-3 HPF (0-3); Specific Gravity, Urine 1.007 (1.002-1.036); Squamous Epithelial 0-3 HPF (0-3); Urobilinogen Normal mg/dL (Less than 2); WBC/HPF Greater than 50 HPF (0-3)
[2023-02-06 13:14] LABS: Urine Culture Reflex Yes Yes
[2023-02-06 14:38] LABS: SARS-CoV-2 NAA Rapid Test Not Detected (NotDetected)
[2023-02-06] MEDS ORDERED: Sodium Chloride 0.9% 100 ML ONE (14:58)
[2023-02-06] MEDS ORDERED: cefTRIAXone (ROCEPHIN) 1 GM VIAL ONE (14:58)
[2023-02-06] MEDS ORDERED: cefTRIAXone\\ROCEPHIN 1 GM in Sodium Chloride 0.9% 100 ML IVPB SCH (15:00)
[2023-02-06 15:41] LABS: Troponin I 0.128 ng/mL (< 0.028)
[2023-02-06 17:53] VITALS: BMI 32.6
[2023-02-06 19:49] LABS: Troponin I 0.134 ng/mL (< 0.028)
[2023-02-06] MEDS: Acetaminophen 325 MG TAB PO PRN (20:01)
[2023-02-06] MEDS: Apixaban 5 MG TAB PO SCH (21:27)
[2023-02-06] MEDS: Pregabalin 50 MG CAP PO SCH (21:27)
[2023-02-06] MEDS: Metoprolol Tartrate 25 MG TAB PO SCH (21:27)
[2023-02-06] MEDS: DULoxetine 60 MG CAP PO SCH (21:27)
[2023-02-06 22:02] LABS: Troponin I 0.147 ng/mL (< 0.028)
[2023-02-07] MEDS: traMADol HCl 50 MG TAB PO SCH ×5 (01:33→23:51)
[2023-02-07 04:17] LABS: #Eosinphils 0.2 thou/uL (0.0-0.7); #Monocytes 0.7 thou/uL (0.11-0.59); %Basophils 0.5 % (0.0-1.0); %Eosinophils 2.1 % (0.0-10.0); %Lymphocytes 7.7 % (21.0-51.0); %Monocytes 9.7 % (0.0-10.0); %Neutrophils 79.5 % (42.0-75.0); Mean Corpuscular Hemoglobin 27.7 pg (27.0-31.0); Mean Platelet Volume 10.9 fL (7.4-10.4); Platelet Count 234 10x3/uL (130-400); RBC Distribution Width 16.1 % (11.5-14.5); Red Blood Cell (RBC) Count 3.25 mill/uL (4.20-5.40); White Blood Cell (WBC) Count 7.5 10x3/uL (4.8-10.8)
[2023-02-07 04:20] LABS: Mean Corpuscular Volume 89.2 fl (78.0-98.0)
[2023-02-07 04:51] LABS: BUN (Urea Nitrogen) 37 mg/dL (9.8-20.1); Calc. Creatinine Clearance 52 mL/min (70-130); Estimated GFR 47; Glucose 108 mg/dL (83-110)
[2023-02-07 04:55] LABS: Potassium 2.5 mmol/L (3.5-5.1)
[2023-02-07 05:00] LABS: Anion Gap 19 mmol/L (10-20); Carbon Dioxide 36 mmol/L (23-31); Chloride 87 mmol/L (98-107); Sodium 139 mmol/L (136-145)
[2023-02-07] MEDS ORDERED: Electrolyte Replacement Protocol FS PRN (05:15)
[2023-02-07] MEDS: Levothyroxine 150 MCG TAB PO SCH (05:24)
[2023-02-07] MEDS: Potassium Chloride 20 MEQ TAB PO SCH ×3 (05:24→17:20)
[2023-02-07 05:28] LABS: Magnesium 1.9 mg/dL (1.6-2.6)
[2023-02-07] MEDS ORDERED: Furosemide 40 MG/4 ML VIAL SLOW IVP SCH (06:00)
[2023-02-07 07:33] LABS: Magnesium 1.9 mg/dL (1.6-2.6)
[2023-02-07] MEDS ORDERED: Magnesium 2 GM/50 ML(in water) 2 GM in Premix 1 BAG IVPB SCH (08:00)
[2023-02-07] MEDS: Aspirin 81 mg Enteric Coated Tablet PO SCH (08:35)
[2023-02-07] MEDS: DULoxetine 60 MG CAP PO SCH ×2 (08:35→21:02)
[2023-02-07] MEDS: Apixaban 5 MG TAB PO SCH ×2 (08:36→21:02)
[2023-02-07] MEDS: Metoprolol Tartrate 25 MG TAB PO SCH ×2 (08:38→21:02)
[2023-02-07] MEDS ORDERED: FLU VACC QS2023(65UP)/MF59C/PF 60 MCG/0.5 ML SYRINGE IM ONE (09:00)
[2023-02-07] MEDS ORDERED: Ipratropium/Albuterol 3 ML NEB NEB PRN (09:28)
[2023-02-07 11:49] LABS: Troponin I 0.105 ng/mL (< 0.028)
[2023-02-07] MEDS: Acetaminophen 325 MG TAB PO PRN (13:49)
[2023-02-07] MEDS: Furosemide 40 MG/4 ML VIAL SLOW IVP SCH (13:51)
[2023-02-07] MEDS: cefTRIAXone\\ROCEPHIN 1 GM in Sodium Chloride 0.9% 100 ML IVPB SCH (13:52)
[2023-02-07] MEDS ORDERED: Potassium Chloride 20 MEQ TAB PO SCH (17:00)
[2023-02-07] MEDS: Pregabalin 50 MG CAP PO SCH (21:01)
[2023-02-08 05:53] LABS: Anion Gap 13 mmol/L (10-20); BUN (Urea Nitrogen) 27 mg/dL (9.8-20.1); Calc. Creatinine Clearance 75 mL/min (70-130); Carbon Dioxide 37 mmol/L (23-31); Chloride 92 mmol/L (98-107); Estimated GFR 72; Glucose 92 mg/dL (83-110); Potassium 3.4 mmol/L (3.5-5.1); Sodium 139 mmol/L (136-145)
[2023-02-08] MEDS: traMADol HCl 50 MG TAB PO SCH ×3 (05:53→17:35)
[2023-02-08] MEDS: Levothyroxine 150 MCG TAB PO SCH (05:59)
[2023-02-08] MEDS: Furosemide 40 MG/4 ML VIAL SLOW IVP SCH ×2 (05:59→13:07)
[2023-02-08] MEDS: Acetaminophen 325 MG TAB PO PRN (05:59)
[2023-02-08] MEDS ORDERED: Potassium Chloride 20 MEQ TAB PO SCH ×2 (08:00→09:30)
[2023-02-08] MEDS: Aspirin 81 mg Enteric Coated Tablet PO SCH (08:50)
[2023-02-08] MEDS: Apixaban 5 MG TAB PO SCH ×2 (08:50→19:55)
[2023-02-08] MEDS: DULoxetine 60 MG CAP PO SCH ×2 (08:50→19:55)
[2023-02-08] MEDS: Metoprolol Tartrate 25 MG TAB PO SCH ×2 (08:51→19:55)
[2023-02-08] MEDS: Potassium Chloride 20 MEQ TAB PO SCH ×2 (08:53→16:00)
[2023-02-08] MEDS: cefTRIAXone\\ROCEPHIN 1 GM in Sodium Chloride 0.9% 100 ML IVPB SCH (15:08)
[2023-02-08] MEDS: Pregabalin 50 MG CAP PO SCH (19:55)
[2023-02-08] MEDS: Liothyronine Sodium 5 MCG TAB PO SCH (19:55)
[2023-02-09] MEDS: traMADol HCl 50 MG TAB PO SCH ×4 (00:52→20:04)
[2023-02-09] MEDS: Acetaminophen 325 MG TAB PO PRN ×2 (00:59→11:13)
[2023-02-09] MEDS: HYDROcodone/Acetaminophen 5/325 mg Tablet PO PRN ×2 (03:12→20:10)
[2023-02-09 04:51] LABS: #Eosinphils 0.3 thou/uL (0.0-0.7); #Monocytes 0.8 thou/uL (0.11-0.59); #Neutrophils 4.1 thou/uL (1.40-6.50); %Basophils 0.6 % (0.0-1.0); %Lymphocytes 16.9 % (21.0-51.0); %Monocytes 13.4 % (0.0-10.0); %Neutrophils 64.6 % (42.0-75.0); Hematocrit 30.8 % (36.0-47.0); Hemoglobin 9.1 g/dL (12.0-16.0); Mean Corpuscular HGB CONC 29.5 g/dL (32.0-36.0); Mean Corpuscular Hemoglobin 27.3 pg (27.0-31.0); Mean Corpuscular Volume 92.5 fl (78.0-98.0); Mean Platelet Volume 11.2 fL (7.4-10.4); Platelet Count 258 10x3/uL (130-400); RBC Distribution Width 16.5 % (11.5-14.5); Red Blood Cell (RBC) Count 3.33 mill/uL (4.20-5.40); White Blood Cell (WBC) Count 6.3 10x3/uL (4.8-10.8)
[2023-02-09] MEDS: Levothyroxine 150 MCG TAB PO SCH (05:18)
[2023-02-09] MEDS: Furosemide 40 MG/4 ML VIAL SLOW IVP SCH ×2 (05:18→20:03)
[2023-02-09 05:35] LABS: BUN (Urea Nitrogen) 27 mg/dL (9.8-20.1); Calc. Creatinine Clearance 71 mL/min (70-130); Calcium 9.2 mg/dL (7.8-10.44); Estimated GFR 69; Glucose 89 mg/dL (83-110)
[2023-02-09 05:44] LABS: Anion Gap 17 mmol/L (10-20); Carbon Dioxide 37 mmol/L (23-31); Chloride 90 mmol/L (98-107); Potassium 3.7 mmol/L (3.5-5.1); Sodium 140 mmol/L (136-145)
[2023-02-09] MEDS: Metolazone 5 MG TAB PO SCH (08:46)
[2023-02-09] MEDS: DULoxetine 60 MG CAP PO SCH ×2 (08:46→20:10)
[2023-02-09] MEDS: Liothyronine Sodium 5 MCG TAB PO SCH ×2 (08:46→20:11)
[2023-02-09] MEDS: Potassium Chloride 20 MEQ TAB PO SCH ×2 (08:47→20:04)
[2023-02-09] MEDS: Apixaban 5 MG TAB PO SCH ×2 (08:47→20:10)
[2023-02-09] MEDS: Metoprolol Tartrate 25 MG TAB PO SCH ×2 (08:47→20:10)
[2023-02-09] MEDS: Aspirin 81 mg Enteric Coated Tablet PO SCH (08:47)
[2023-02-09] MEDS: cefTRIAXone\\ROCEPHIN 1 GM in Sodium Chloride 0.9% 100 ML IVPB SCH (20:04)
[2023-02-09] MEDS: dilTIAZem 125 MG, Admixture Fee 1 EACH in Sodium Chloride 0.9% 100 ML IVPB SCH (20:05)
[2023-02-09] MEDS: Pregabalin 50 MG CAP PO SCH (20:11)
[2023-02-10 00:09] LABS: Troponin I 0.047 ng/mL (< 0.028)
[2023-02-10] MEDS: traMADol HCl 50 MG TAB PO SCH ×4 (04:43→19:03)
[2023-02-10 05:46] LABS: #Eosinphils 0.2 thou/uL (0.0-0.7); #Monocytes 0.8 thou/uL (0.11-0.59); #Neutrophils 4.5 thou/uL (1.40-6.50); %Basophils 0.6 % (0.0-1.0); %Eosinophils 2.9 % (0.0-10.0); %Lymphocytes 15.9 % (21.0-51.0); %Monocytes 12.4 % (0.0-10.0); %Neutrophils 67.4 % (42.0-75.0); Hematocrit 31.6 % (36.0-47.0); Hemoglobin 9.4 g/dL (12.0-16.0); Mean Corpuscular HGB CONC 29.7 g/dL (32.0-36.0); Mean Corpuscular Hemoglobin 26.9 pg (27.0-31.0); Mean Corpuscular Volume 90.5 fl (78.0-98.0); Mean Platelet Volume 10.9 fL (7.4-10.4); Platelet Count 242 10x3/uL (130-400); RBC Distribution Width 16.4 % (11.5-14.5); Red Blood Cell (RBC) Count 3.49 mill/uL (4.20-5.40); White Blood Cell (WBC) Count 6.6 10x3/uL (4.8-10.8)
[2023-02-10] MEDS: Furosemide 40 MG/4 ML VIAL SLOW IVP SCH ×2 (06:00→12:49)
[2023-02-10] MEDS: Levothyroxine 150 MCG TAB PO SCH (06:00)
[2023-02-10 06:23] LABS: BUN (Urea Nitrogen) 21 mg/dL (9.8-20.1); Calc. Creatinine Clearance 74 mL/min (70-130); Calcium 9.4 mg/dL (7.8-10.44); Estimated GFR 73; Glucose 79 mg/dL (83-110)
[2023-02-10 06:32] LABS: Anion Gap 17 mmol/L (10-20); Carbon Dioxide 35 mmol/L (23-31); Chloride 90 mmol/L (98-107); Potassium 3.5 mmol/L (3.5-5.1); Sodium 138 mmol/L (136-145)
[2023-02-10] MEDS: Acetaminophen 325 MG TAB PO PRN ×4 (07:01→23:37)
[2023-02-10] MEDS ORDERED: Digoxin 0.5 MG/2 ML AMP SLOW IVP SCH ×3 (08:45→23:00)
[2023-02-10] MEDS: Metolazone 5 MG TAB PO SCH (09:09)
[2023-02-10] MEDS: Liothyronine Sodium 5 MCG TAB PO SCH ×2 (09:09→20:33)
[2023-02-10] MEDS: Aspirin 81 mg Enteric Coated Tablet PO SCH (09:09)
[2023-02-10] MEDS: Metoprolol Tartrate 50 MG TAB PO SCH ×2 (09:10→20:33)
[2023-02-10] MEDS: Potassium Chloride 20 MEQ TAB PO SCH ×2 (09:10→17:11)
[2023-02-10] MEDS: DULoxetine 60 MG CAP PO SCH ×2 (09:10→20:33)
[2023-02-10] MEDS: Apixaban 5 MG TAB PO SCH ×2 (09:11→20:33)
[2023-02-10] MEDS ORDERED: Potassium Bicarbonate/Cit Ac 20 MEQ TAB PO SCH (09:30)
[2023-02-10 11:41] LABS: Magnesium 1.9 mg/dL (1.6-2.6)
[2023-02-10] MEDS ORDERED: Potassium Chloride 20 MEQ TAB PO SCH (12:00)
[2023-02-10] MEDS: Docusate 100 MG CAP PO PRN (12:49)
[2023-02-10] MEDS ORDERED: Magnesium 2 GM/50 ML(in water) 2 GM in Premix 1 BAG IVPB SCH (13:00)
[2023-02-10] MEDS: cefTRIAXone\\ROCEPHIN 1 GM in Sodium Chloride 0.9% 100 ML IVPB SCH (14:53)
[2023-02-10] MEDS: dilTIAZem 125 MG, Admixture Fee 1 EACH in Sodium Chloride 0.9% 100 ML IVPB SCH (14:54)
[2023-02-10] MEDS: Pregabalin 50 MG CAP PO SCH (20:33)
[2023-02-11] MEDS ORDERED: Polyethylene Glycol 3350 17 GM Packet PO SCH ×2 (00:30→22:00)
[2023-02-11] MEDS: Docusate 100 MG CAP PO PRN ×3 (00:34→20:37)
[2023-02-11] MEDS: Diazepam 2 MG TAB PO PRN (00:34)
[2023-02-11] MEDS: traMADol HCl 50 MG TAB PO SCH ×2 (00:40→10:09)
[2023-02-11] MEDS: Furosemide 40 MG/4 ML VIAL SLOW IVP SCH (05:26)
[2023-02-11] MEDS: Levothyroxine 150 MCG TAB PO SCH (05:27)
[2023-02-11] MEDS: Acetaminophen 325 MG TAB PO PRN (05:27)
[2023-02-11 05:34] LABS: #Basophils 0.1 thou/uL (0.0-0.2); #Eosinphils 0.4 thou/uL (0.0-0.7); #Monocytes 1.1 thou/uL (0.11-0.59); #Neutrophils 5.4 thou/uL (1.40-6.50); %Basophils 0.8 % (0.0-1.0); %Eosinophils 4.4 % (0.0-10.0); %Lymphocytes 15.7 % (21.0-51.0); %Monocytes 13.2 % (0.0-10.0); %Neutrophils 65.1 % (42.0-75.0); Hematocrit 35.5 % (36.0-47.0); Hemoglobin 10.7 g/dL (12.0-16.0); Mean Corpuscular HGB CONC 30.1 g/dL (32.0-36.0); Mean Corpuscular Hemoglobin 26.9 pg (27.0-31.0); Mean Corpuscular Volume 89.2 fl (78.0-98.0); Mean Platelet Volume 11.2 fL (7.4-10.4); Platelet Count 281 10x3/uL (130-400); RBC Distribution Width 16.3 % (11.5-14.5); Red Blood Cell (RBC) Count 3.98 mill/uL (4.20-5.40); White Blood Cell (WBC) Count 8.3 10x3/uL (4.8-10.8)
[2023-02-11 06:07] LABS: Anion Gap 16 mmol/L (10-20); BUN (Urea Nitrogen) 21 mg/dL (9.8-20.1); Calc. Creatinine Clearance 64 mL/min (70-130); Calcium 9.7 mg/dL (7.8-10.44); Carbon Dioxide 33 mmol/L (23-31); Chloride 92 mmol/L (98-107); Estimated GFR 61; Glucose 79 mg/dL (83-110); Sodium 137 mmol/L (136-145)
[2023-02-11] MEDS ORDERED: traMADol HCl 50 MG TAB PO PRN (06:54)
[2023-02-11] MEDS: Aspirin 81 mg Enteric Coated Tablet PO SCH (10:11)
[2023-02-11] MEDS: Apixaban 5 MG TAB PO SCH ×2 (10:11→20:36)
[2023-02-11] MEDS: DULoxetine 60 MG CAP PO SCH ×2 (10:11→20:37)
[2023-02-11] MEDS: Digoxin 0.125 MG TAB PO SCH (10:11)
[2023-02-11] MEDS: Liothyronine Sodium 5 MCG TAB PO SCH ×2 (10:12→20:37)
[2023-02-11] MEDS: Potassium Chloride 20 MEQ TAB PO SCH ×2 (10:12→17:25)
[2023-02-11] MEDS: Metoprolol Tartrate 50 MG TAB PO SCH ×2 (10:12→20:37)
[2023-02-11] MEDS: Bumetanide 1 MG TAB PO SCH ×2 (10:24→20:37)
[2023-02-11 12:17] LABS: Digoxin 1.83 ng/mL (0.8-2.0)
[2023-02-11 12:28] LABS: Free T4 (Free Thyroxine) 1.24 ng/dL (0.70-1.48)
[2023-02-11] MEDS ORDERED: Calcium Carbonate 500 MG ChewTAB PO PRN (13:34)
[2023-02-11] MEDS: cefTRIAXone\\ROCEPHIN 1 GM in Sodium Chloride 0.9% 100 ML IVPB SCH (14:31)
[2023-02-11] MEDS: Ondansetron ODT 4 MG TAB PO PRN (14:31)
[2023-02-11] MEDS ORDERED: Polyethylene Glycol 3350 17 GM Packet PO PRN (21:57)
[2023-02-11] MEDS ORDERED: Docusate 100 MG CAP PO SCH (22:00)
[2023-02-12] MEDS: Levothyroxine Sodium 125 MCG TAB PO SCH (05:00)
[2023-02-12] MEDS: Ondansetron ODT 4 MG TAB PO PRN ×2 (05:01→13:32)
[2023-02-12 05:15] LABS: #Basophils 0.1 thou/uL (0.0-0.2); #Eosinphils 0.2 thou/uL (0.0-0.7); #Monocytes 0.9 thou/uL (0.11-0.59); %Basophils 0.8 % (0.0-1.0); %Eosinophils 2.8 % (0.0-10.0); %Monocytes 10.1 % (0.0-10.0); %Neutrophils 69.5 % (42.0-75.0); Hematocrit 37.5 % (36.0-47.0); Hemoglobin 11.3 g/dL (12.0-16.0); Mean Corpuscular HGB CONC 30.1 g/dL (32.0-36.0); Mean Corpuscular Volume 89.5 fl (78.0-98.0); Mean Platelet Volume 10.8 fL (7.4-10.4); Platelet Count 355 10x3/uL (130-400); RBC Distribution Width 16.4 % (11.5-14.5); Red Blood Cell (RBC) Count 4.19 mill/uL (4.20-5.40); White Blood Cell (WBC) Count 8.7 10x3/uL (4.8-10.8)
[2023-02-12 05:42] LABS: BUN (Urea Nitrogen) 21 mg/dL (9.8-20.1); Calc. Creatinine Clearance 61 mL/min (70-130); Calcium 9.6 mg/dL (7.8-10.44); Estimated GFR 57; Glucose 93 mg/dL (83-110)
[2023-02-12 05:51] LABS: Anion Gap 21 mmol/L (10-20); Carbon Dioxide 34 mmol/L (23-31); Chloride 87 mmol/L (98-107); Potassium 3.7 mmol/L (3.5-5.1); Sodium 138 mmol/L (136-145)
[2023-02-12] MEDS: Bumetanide 1 MG TAB PO SCH ×2 (09:21→21:33)
[2023-02-12] MEDS: Digoxin 0.125 MG TAB PO SCH (09:21)
[2023-02-12] MEDS: Metoprolol Tartrate 50 MG TAB PO SCH ×2 (09:22→21:33)
[2023-02-12] MEDS: Aspirin 81 mg Enteric Coated Tablet PO SCH (09:22)
[2023-02-12] MEDS: Potassium Chloride 20 MEQ TAB PO SCH ×2 (09:22→18:23)
[2023-02-12] MEDS: Apixaban 5 MG TAB PO SCH ×2 (09:22→21:33)
[2023-02-12] MEDS: DULoxetine 60 MG CAP PO SCH ×2 (09:22→21:33)
[2023-02-12] MEDS: Liothyronine Sodium 5 MCG TAB PO SCH ×2 (09:22→21:33)
[2023-02-12] MEDS: Diazepam 2 MG TAB PO PRN (21:33)
[2023-02-13 04:28] LABS: #Basophils 0.1 thou/uL (0.0-0.2); #Eosinphils 0.1 thou/uL (0.0-0.7); #Monocytes 1.1 thou/uL (0.11-0.59); %Basophils 0.5 % (0.0-1.0); %Lymphocytes 13.7 % (21.0-51.0); %Monocytes 10.3 % (0.0-10.0); %Neutrophils 73.8 % (42.0-75.0); Hematocrit 36.3 % (36.0-47.0); Hemoglobin 11.1 g/dL (12.0-16.0); Mean Corpuscular HGB CONC 30.6 g/dL (32.0-36.0); Mean Corpuscular Hemoglobin 27.1 pg (27.0-31.0); Mean Corpuscular Volume 88.5 fl (78.0-98.0); Mean Platelet Volume 10.9 fL (7.4-10.4); Platelet Count 406 10x3/uL (130-400); RBC Distribution Width 16.5 % (11.5-14.5); White Blood Cell (WBC) Count 10.9 10x3/uL (4.8-10.8)
[2023-02-13] MEDS: Levothyroxine Sodium 125 MCG TAB PO SCH (05:37)
[2023-02-13] MEDS: Ondansetron ODT 4 MG TAB PO PRN (05:37)
[2023-02-13 06:01] LABS: Anion Gap 18 mmol/L (10-20); BUN (Urea Nitrogen) 26 mg/dL (9.8-20.1); Calc. Creatinine Clearance 46 mL/min (70-130); Calcium 9.9 mg/dL (7.8-10.44); Carbon Dioxide 36 mmol/L (23-31); Chloride 84 mmol/L (98-107); Estimated GFR 44; Glucose 102 mg/dL (83-110); Potassium 3.3 mmol/L (3.5-5.1); Sodium 135 mmol/L (136-145)
[2023-02-13] MEDS ORDERED: Lactated Ringer's 500 ML IV SCH (08:00)
[2023-02-13] MEDS ORDERED: Magnesium Oxide 400 MG TAB PO SCH (09:00)
[2023-02-13] MEDS ORDERED: Ondansetron ODT 4 MG TAB PO SCH (09:00)
[2023-02-13 09:01] LABS: Phosphorus 3.8 mg/dL (2.3-4.7)
[2023-02-13 09:02] LABS: Magnesium 1.6 mg/dL (1.6-2.6)
[2023-02-13] MEDS: Bumetanide 1 MG TAB PO SCH (09:19)
[2023-02-13] MEDS: Liothyronine Sodium 5 MCG TAB PO SCH (09:19)
[2023-02-13] MEDS: Potassium Chloride 20 MEQ TAB PO SCH (09:20)
[2023-02-13] MEDS: Aspirin 81 mg Enteric Coated Tablet PO SCH (09:20)
[2023-02-13] MEDS: DULoxetine 60 MG CAP PO SCH (09:20)
[2023-02-13] MEDS: Metoprolol Tartrate 50 MG TAB PO SCH (09:20)
[2023-02-13] MEDS: Apixaban 5 MG TAB PO SCH (09:20)
[2023-02-13] MEDS: Digoxin 0.125 MG TAB PO SCH (09:20)
[2023-02-13] MEDS ORDERED: Potassium Chloride 20 MEQ TAB PO SCH (12:00)
[2023-02-13 12:55] VITALS: BP 125/60; TEMP 97.5
[2023-02-13] MEDS ORDERED: Magnesium 2 GM/50 ML(in water) 2 GM in Premix 1 BAG IVPB SCH (13:45)
== END 2023-02-13 14:39 | DRG 280 ==
LOC: ERS 10:53 → ERHOLD 14:23 → 2NO 17:17 → OBSVTOIN 02-07 08:47
PROVIDERS: ADMIT Internal Medicine; ATTEND Student in an Organized Health Care Education/Training Program
DX: I50.33 Acute on chronic diastolic (congestive) heart failure (principal); G93.41 Metabolic encephalopathy; I21.A1 Myocardial infarction type 2; J96.21 Acute and chronic respiratory failure with hypoxia; N17.9 Acute kidney failure, unspecified; N39.0 Urinary tract infection, site not specified; I48.19 Other persistent atrial fibrillation; J44.9 Chronic obstructive pulmonary disease, unspecified; E03.9 Hypothyroidism, unspecified; E78.5 Hyperlipidemia, unspecified; F41.9 Anxiety disorder, unspecified; F32.A Depression, unspecified; E87.6 Hypokalemia; D63.8 Anemia in other chronic diseases classified elsewhere; E66.9 Obesity, unspecified; Z68.30 Body mass index [BMI] 30.0-30.9, adult; Z79.01 Long term (current) use of anticoagulants; Z88.5 Allergy status to narcotic agent; Z79.82 Long term (current) use of aspirin; Z90.710 Acquired absence of both cervix and uterus; Z87.891 Personal history of nicotine dependence; Z86.73 Personal history of transient ischemic attack (TIA), and cerebral infarction without residual deficits; Z79.899 Other long term (current) drug therapy; Z11.52 Encounter for screening for COVID-19
CPT/HCPCS: 36415; 36416; 71045; 80048; 80053; 80162; 81001; 83605; 83735; 83880; 84100; 84439; 84443; 84481; 84484; 85025; 87040; 87077; 87086; 87186; 93005; 93010; 96365; 96375; 96376; G0378; J0696; J1160; J1940; J3475; J3490; J7120; Q0162

== ENCOUNTER 2023-03-13 19:17 | Inpatient (IN) | payer BC, MEDICARE ==
[2023-03-13 20:12] LABS: #Monocytes 0.8 thou/uL (0.11-0.59); #Neutrophils 6.8 thou/uL (1.40-6.50); %Basophils 0.3 % (0.0-1.0); %Eosinophils 0.2 % (0.0-10.0); %Lymphocytes 11.1 % (21.0-51.0); %Monocytes 8.8 % (0.0-10.0); %Neutrophils 79.3 % (42.0-75.0); Hematocrit 30.5 % (36.0-47.0); Hemoglobin 9.6 g/dL (12.0-16.0); Mean Corpuscular HGB CONC 31.5 g/dL (32.0-36.0); Mean Corpuscular Hemoglobin 26.6 pg (27.0-31.0); Mean Corpuscular Volume 84.5 fl (78.0-98.0); Mean Platelet Volume 9.9 fL (7.4-10.4); Platelet Count 356 10x3/uL (130-400); RBC Distribution Width 15.3 % (11.5-14.5); Red Blood Cell (RBC) Count 3.61 mill/uL (4.20-5.40); White Blood Cell (WBC) Count 8.6 10x3/uL (4.8-10.8)
[2023-03-13 20:39] LABS: ALT (SGPT) 10 U/L (8-55); AST (SGOT) 15 U/L (5-34); Albumin 2.8 g/dL (3.4-4.8); Alkaline Phosphatase 63 U/L (40-110); Anion Gap 12 mmol/L (10-20); BUN (Urea Nitrogen) 10 mg/dL (9.8-20.1); Bilirubin, Total 0.5 mg/dL (0.2-1.2); Calc. Creatinine Clearance 0 mL/min (70-130); Calcium 8.6 mg/dL (7.8-10.44); Carbon Dioxide 30 mmol/L (23-31); Chloride 99 mmol/L (98-107); Estimated GFR 61; Glucose 86 mg/dL (83-110); Lipase 23 U/L (8-78); Potassium 3.9 mmol/L (3.5-5.1); Protein, Total 5.8 g/dL (5.8-8.1); Sodium 137 mmol/L (136-145)
[2023-03-13 20:40] LABS: Troponin I 0.068 ng/mL (< 0.028)
[2023-03-13] MEDS ORDERED: Pantoprazole 40 MG VIAL ONE (22:45)
[2023-03-14] MEDS ORDERED: Ondansetron ODT 4 MG TAB PO PRN ×2 (01:48→09:10)
[2023-03-14] MEDS ORDERED: Acetaminophen 325 MG TAB ONE ×2 (02:11→08:59)
[2023-03-14] MEDS: Acetaminophen 325 MG TAB PO PRN ×2 (02:16→09:01)
[2023-03-14 04:22] LABS: #Basophils 0.1 thou/uL (0.0-0.2); #Eosinphils 0.1 thou/uL (0.0-0.7); #Monocytes 0.9 thou/uL (0.11-0.59); #Neutrophils 7.8 thou/uL (1.40-6.50); %Basophils 0.5 % (0.0-1.0); %Eosinophils 0.9 % (0.0-10.0); %Lymphocytes 10.8 % (21.0-51.0); %Monocytes 9.4 % (0.0-10.0); Hematocrit 30.2 % (36.0-47.0); Hemoglobin 9.6 g/dL (12.0-16.0); Mean Corpuscular HGB CONC 31.8 g/dL (32.0-36.0); Mean Corpuscular Volume 84.8 fl (78.0-98.0); Platelet Count 396 10x3/uL (130-400); RBC Distribution Width 15.2 % (11.5-14.5); Red Blood Cell (RBC) Count 3.56 mill/uL (4.20-5.40)
[2023-03-14 04:40] LABS: Iron 22 ug/dL (50-170); Iron Binding Capacity, Total 299 mcg/dL (265-497); Magnesium 1.7 mg/dL (1.6-2.6); Phosphorus 2.9 mg/dL (2.3-4.7)
[2023-03-14 04:41] LABS: ALT (SGPT) 12 U/L (8-55); AST (SGOT) 17 U/L (5-34); Albumin 2.9 g/dL (3.4-4.8); Alkaline Phosphatase 65 U/L (40-110); Anion Gap 16 mmol/L (10-20); BUN (Urea Nitrogen) 10 mg/dL (9.8-20.1); Bilirubin, Total 0.6 mg/dL (0.2-1.2); Calc. Creatinine Clearance 0 mL/min (70-130); Calcium 8.5 mg/dL (7.8-10.44); Carbon Dioxide 25 mmol/L (23-31); Chloride 100 mmol/L (98-107); Estimated GFR 65; Globulin 3.1 g/dL (2.4-3.5); Glucose 79 mg/dL (83-110); Potassium 3.7 mmol/L (3.5-5.1); Sodium 137 mmol/L (136-145)
[2023-03-14 06:03] LABS: Ferritin 77.22 ng/mL (10-291)
[2023-03-14] MEDS ORDERED: Pantoprazole 40 MG VIAL ONE (07:55)
[2023-03-14] MEDS: Pantoprazole 40 MG VIAL IVP SCH ×2 (08:06→22:18)
[2023-03-14] MEDS: Lactated Ringer's 1,000 ML IV SCH ×3 (08:06→22:18)
[2023-03-14] MEDS ORDERED: Calcium Carbonate 500 MG ChewTAB PO PRN (09:10)
[2023-03-14] MEDS ORDERED: Acetaminophen 325 MG TAB PO PRN (09:10)
[2023-03-14] MEDS ORDERED: traMADol HCl 50 MG TAB PO PRN (09:10)
[2023-03-14] MEDS ORDERED: Docusate 100 MG CAP PO PRN (09:10)
[2023-03-14] MEDS ORDERED: Ipratropium/Albuterol 3 ML NEB NEB PRN (09:10)
[2023-03-14] MEDS ORDERED: traMADol HCl 50 MG TAB ONE (09:43)
[2023-03-14] MEDS ORDERED: Ondansetron ODT 4 MG TAB ONE (09:53)
[2023-03-14] MEDS: Potassium Chloride 20 MEQ TAB PO SCH (16:06)
[2023-03-14] MEDS: Sucralfate 1 GM TAB PO SCH ×2 (16:06→22:17)
[2023-03-14 20:59] LABS: Troponin I 0.084 ng/mL (< 0.028)
[2023-03-14] MEDS: Metoprolol Tartrate 50 MG TAB PO SCH (22:16)
[2023-03-14] MEDS: Gabapentin 300 MG CAP PO SCH (22:16)
[2023-03-14] MEDS: DULoxetine 60 MG CAP PO SCH (22:17)
[2023-03-14] MEDS: Bumetanide 1 MG TAB PO SCH (22:17)
[2023-03-14] MEDS: Liothyronine Sodium 5 MCG TAB PO SCH (22:17)
[2023-03-14] MEDS: Melatonin 3 MG TAB PO SCH (22:17)
[2023-03-15] MEDS: Levothyroxine Sodium 125 MCG TAB PO SCH (05:11)
[2023-03-15] MEDS: Lactated Ringer's 1,000 ML IV SCH (05:11)
[2023-03-15 06:13] LABS: #Basophils 0.1 thou/uL (0.0-0.2); #Eosinphils 0.2 thou/uL (0.0-0.7); #Monocytes 0.9 thou/uL (0.11-0.59); #Neutrophils 5.4 thou/uL (1.40-6.50); %Basophils 0.7 % (0.0-1.0); %Eosinophils 2.4 % (0.0-10.0); %Lymphocytes 14.1 % (21.0-51.0); %Monocytes 11.3 % (0.0-10.0); %Neutrophils 71.1 % (42.0-75.0); Hematocrit 30.4 % (36.0-47.0); Hemoglobin 9.3 g/dL (12.0-16.0); Mean Corpuscular HGB CONC 30.6 g/dL (32.0-36.0); Mean Corpuscular Hemoglobin 26.2 pg (27.0-31.0); Mean Corpuscular Volume 85.6 fl (78.0-98.0); Mean Platelet Volume 9.9 fL (7.4-10.4); Platelet Count 338 10x3/uL (130-400); RBC Distribution Width 15.2 % (11.5-14.5); Red Blood Cell (RBC) Count 3.55 mill/uL (4.20-5.40); White Blood Cell (WBC) Count 7.6 10x3/uL (4.8-10.8)
[2023-03-15 06:39] LABS: ALT (SGPT) 9 U/L (8-55); AST (SGOT) 16 U/L (5-34); Albumin 2.5 g/dL (3.4-4.8); Alkaline Phosphatase 64 U/L (40-110); Anion Gap 13 mmol/L (10-20); BUN (Urea Nitrogen) 9 mg/dL (9.8-20.1); Bilirubin, Total 0.5 mg/dL (0.2-1.2); Calc. Creatinine Clearance 71 mL/min (70-130); Carbon Dioxide 29 mmol/L (23-31); Chloride 100 mmol/L (98-107); Estimated GFR 71; Globulin 2.9 g/dL (2.4-3.5); Glucose 75 mg/dL (83-110); Potassium 4.1 mmol/L (3.5-5.1); Protein, Total 5.4 g/dL (5.8-8.1); Sodium 138 mmol/L (136-145)
[2023-03-15] MEDS ORDERED: Magnesium Citrate 300 ML BOT PO SCH (08:00)
[2023-03-15] MEDS: Senokot 8.6 MG TAB PO SCH (09:45)
[2023-03-15] MEDS: DULoxetine 60 MG CAP PO SCH ×2 (09:45→21:38)
[2023-03-15] MEDS ORDERED: Magnesium 2 GM/50 ML(in water) 2 GM in Premix 1 BAG IVPB SCH (09:45)
[2023-03-15] MEDS: Bumetanide 1 MG TAB PO SCH ×2 (09:45→21:38)
[2023-03-15] MEDS: Cholecalciferol 1,000 UNITS (25 MCG) TAB PO SCH (09:45)
[2023-03-15] MEDS: Sucralfate 1 GM TAB PO SCH ×3 (09:45→21:38)
[2023-03-15] MEDS: Metoprolol Tartrate 50 MG TAB PO SCH ×2 (09:46→21:38)
[2023-03-15] MEDS: Liothyronine Sodium 5 MCG TAB PO SCH ×2 (09:46→21:38)
[2023-03-15] MEDS: Pantoprazole 40 MG VIAL IVP SCH ×2 (09:46→21:38)
[2023-03-15] MEDS: Digoxin 0.125 MG TAB PO SCH (09:46)
[2023-03-15] MEDS: Polyethylene Glycol 3350 17 GM Packet PO SCH (09:47)
[2023-03-15 14:18] LABS: Hematocrit 29.9 % (36.0-47.0); Hemoglobin 9.2 g/dL (12.0-16.0)
[2023-03-15] MEDS: Potassium Chloride 20 MEQ TAB PO SCH (18:00)
[2023-03-15] MEDS: Melatonin 3 MG TAB PO SCH (21:37)
[2023-03-15] MEDS: Gabapentin 300 MG CAP PO SCH (21:38)
[2023-03-16 04:45] LABS: #Basophils 0.1 thou/uL (0.0-0.2); #Eosinphils 0.3 thou/uL (0.0-0.7); #Monocytes 1.1 thou/uL (0.11-0.59); #Neutrophils 6.1 thou/uL (1.40-6.50); %Basophils 0.6 % (0.0-1.0); %Eosinophils 3.6 % (0.0-10.0); %Lymphocytes 13.9 % (21.0-51.0); %Monocytes 12.1 % (0.0-10.0); %Neutrophils 69.2 % (42.0-75.0); Hematocrit 28.5 % (36.0-47.0); Hemoglobin 8.8 g/dL (12.0-16.0); Mean Corpuscular HGB CONC 30.9 g/dL (32.0-36.0); Mean Corpuscular Hemoglobin 26.7 pg (27.0-31.0); Mean Corpuscular Volume 86.4 fl (78.0-98.0); Platelet Count 347 10x3/uL (130-400); RBC Distribution Width 15.3 % (11.5-14.5); White Blood Cell (WBC) Count 8.8 10x3/uL (4.8-10.8)
[2023-03-16] MEDS: Levothyroxine Sodium 125 MCG TAB PO SCH (05:03)
[2023-03-16 05:04] LABS: ALT (SGPT) 8 U/L (8-55); AST (SGOT) 15 U/L (5-34); Albumin 2.4 g/dL (3.4-4.8); Alkaline Phosphatase 61 U/L (40-110); Anion Gap 13 mmol/L (10-20); BUN (Urea Nitrogen) 8 mg/dL (9.8-20.1); Bilirubin, Total 0.4 mg/dL (0.2-1.2); Calc. Creatinine Clearance 69 mL/min (70-130); Carbon Dioxide 30 mmol/L (23-31); Chloride 100 mmol/L (98-107); Estimated GFR 72; Globulin 2.8 g/dL (2.4-3.5); Glucose 83 mg/dL (83-110); Potassium 3.8 mmol/L (3.5-5.1); Protein, Total 5.2 g/dL (5.8-8.1); Sodium 139 mmol/L (136-145)
[2023-03-16] MEDS: Digoxin 0.125 MG TAB PO SCH (09:14)
[2023-03-16] MEDS: Cholecalciferol 1,000 UNITS (25 MCG) TAB PO SCH (09:15)
[2023-03-16] MEDS: DULoxetine 60 MG CAP PO SCH ×2 (09:15→21:01)
[2023-03-16] MEDS: Bumetanide 1 MG TAB PO SCH ×2 (09:16→20:57)
[2023-03-16] MEDS: Metoprolol Tartrate 50 MG TAB PO SCH ×2 (09:16→20:59)
[2023-03-16] MEDS: Aspirin 81 mg Enteric Coated Tablet PO SCH (09:16)
[2023-03-16] MEDS: Liothyronine Sodium 5 MCG TAB PO SCH ×2 (09:16→20:57)
[2023-03-16] MEDS: Pantoprazole 40 MG VIAL IVP SCH ×2 (09:16→21:01)
[2023-03-16] MEDS: Senokot 8.6 MG TAB PO SCH (09:16)
[2023-03-16] MEDS: Sucralfate 1 GM TAB PO SCH ×3 (09:16→20:58)
[2023-03-16] MEDS: Apixaban 5 MG TAB PO SCH ×2 (09:16→21:02)
[2023-03-16] MEDS: Polyethylene Glycol 3350 17 GM Packet PO SCH (09:17)
[2023-03-16] MEDS: Potassium Chloride 20 MEQ TAB PO SCH (16:14)
[2023-03-16] MEDS: Melatonin 3 MG TAB PO SCH (20:58)
[2023-03-16] MEDS: Gabapentin 300 MG CAP PO SCH (21:00)
[2023-03-17] MEDS: Levothyroxine Sodium 125 MCG TAB PO SCH (06:20)
[2023-03-17 08:31] VITALS: BP 113/49; TEMP 97.2
[2023-03-17] MEDS: Sucralfate 1 GM TAB PO SCH (09:22)
[2023-03-17] MEDS: DULoxetine 60 MG CAP PO SCH (09:22)
[2023-03-17] MEDS: Aspirin 81 mg Enteric Coated Tablet PO SCH (09:22)
[2023-03-17] MEDS: Bumetanide 1 MG TAB PO SCH (09:22)
[2023-03-17] MEDS: Cholecalciferol 1,000 UNITS (25 MCG) TAB PO SCH (09:22)
[2023-03-17] MEDS: Senokot 8.6 MG TAB PO SCH (09:22)
[2023-03-17] MEDS: Digoxin 0.125 MG TAB PO SCH (09:22)
[2023-03-17] MEDS: Liothyronine Sodium 5 MCG TAB PO SCH (09:22)
[2023-03-17] MEDS: Polyethylene Glycol 3350 17 GM Packet PO SCH (09:23)
[2023-03-17] MEDS: Pantoprazole 40 MG VIAL IVP SCH (09:23)
[2023-03-17] MEDS: Apixaban 5 MG TAB PO SCH (09:23)
[2023-03-17] MEDS: Metoprolol Tartrate 50 MG TAB PO SCH (09:23)
== END 2023-03-17 10:08 | DRG 377 ==
LOC: ERS 19:17 → ERHOLD 03-14 01:13 → 2SE 03-14 15:04 → OBSVTOIN 03-15 17:23
PROVIDERS: ADMIT Student in an Organized Health Care Education/Training Program; ATTEND Student in an Organized Health Care Education/Training Program
DX: K92.2 Gastrointestinal hemorrhage, unspecified (principal); I21.A1 Myocardial infarction type 2; I48.19 Other persistent atrial fibrillation; I50.32 Chronic diastolic (congestive) heart failure; J44.9 Chronic obstructive pulmonary disease, unspecified; E03.9 Hypothyroidism, unspecified; E78.00 Pure hypercholesterolemia, unspecified; K21.9 Gastro-esophageal reflux disease without esophagitis; E78.5 Hyperlipidemia, unspecified; D64.9 Anemia, unspecified; F32.A Depression, unspecified; F41.1 Generalized anxiety disorder; G62.9 Polyneuropathy, unspecified; I11.0 Hypertensive heart disease with heart failure; G89.29 Other chronic pain; I27.20 Pulmonary hypertension, unspecified; Z90.710 Acquired absence of both cervix and uterus; Z86.73 Personal history of transient ischemic attack (TIA), and cerebral infarction without residual deficits; Z88.5 Allergy status to narcotic agent; Z79.01 Long term (current) use of anticoagulants; Z79.82 Long term (current) use of aspirin; Z79.899 Other long term (current) drug therapy; Z98.890 Other specified postprocedural states
CPT/HCPCS: 36415; 74177; 80053; 82274; 82607; 82728; 83540; 83550; 83690; 83735; 84100; 84484; 85025; 86850; 86900; 86901; 93005; 96375; 96376; C9113; G0378; J3475; J7120; Q0162; Q9967

== ENCOUNTER 2023-04-15 09:43 | Inpatient (IN) | payer MEDICARE ==
[2023-04-15 11:04] LABS: #Monocytes 0.8 thou/uL (0.11-0.59); #Neutrophils 9.8 thou/uL (1.40-6.50); %Basophils 0.2 % (0.0-1.0); %Eosinophils 0.1 % (0.0-10.0); %Lymphocytes 3.4 % (21.0-51.0); %Monocytes 6.8 % (0.0-10.0); Hematocrit 32.8 % (36.0-47.0); Hemoglobin 10.5 g/dL (12.0-16.0); Mean Corpuscular Hemoglobin 26.4 pg (27.0-31.0); Mean Corpuscular Volume 82.4 fl (78.0-98.0); Mean Platelet Volume 9.7 fL (7.4-10.4); Platelet Count 224 10x3/uL (130-400); RBC Distribution Width 16.8 % (11.5-14.5); Red Blood Cell (RBC) Count 3.98 mill/uL (4.20-5.40); White Blood Cell (WBC) Count 11.1 10x3/uL (4.8-10.8)
[2023-04-15 11:17] LABS: INR-International Normal Ratio 1.1; Prothrombin Time 14.7 sec (12.0-14.7)
[2023-04-15 11:18] LABS: PTT 30.5 sec (22.9-36.1)
[2023-04-15 11:21] LABS: Digoxin 0.96 ng/mL (0.8-2.0)
[2023-04-15 11:22] LABS: ALT (SGPT) 12 U/L (8-55); AST (SGOT) 19 U/L (5-34); Albumin 2.4 g/dL (3.4-4.8); Alkaline Phosphatase 62 U/L (40-110); Anion Gap 17 mmol/L (10-20); BUN (Urea Nitrogen) 17 mg/dL (9.8-20.1); Bilirubin, Total 0.5 mg/dL (0.2-1.2); Calc. Creatinine Clearance 0 mL/min (70-130); Calcium 7.8 mg/dL (7.8-10.44); Carbon Dioxide 27 mmol/L (23-31); Chloride 91 mmol/L (98-107); Estimated GFR 50; Globulin 3.1 g/dL (2.4-3.5); Glucose 66 mg/dL (83-110); Lipase 17 U/L (8-78); Magnesium 1.2 mg/dL (1.6-2.6); Potassium 2.8 mmol/L (3.5-5.1); Protein, Total 5.5 g/dL (5.8-8.1); Sodium 132 mmol/L (136-145)
[2023-04-15 11:25] LABS: Troponin I 0.074 ng/mL (< 0.028)
[2023-04-15 12:16] LABS: Bacteria/HPF None Seen HPF (None Seen); Bilirubin Negative (Negative); Blood, Urine Negative (Negative); CAUTI Indications for Culture Alt mental st,lethar; Clarity Clear (Clear); Glucose, Urine (Dipstick) Normal (Negative); Ketone, Urine 20 mg/dL (Negative); Leukocyte Negative Leu/uL (Negative); Nitrite Negative (Negative); Protein, Urine (Dipstick) 20 mg/dL (Neg-Trace); RBC/HPF None Seen HPF (0-3); Specific Gravity, Urine 1.019 (1.002-1.036); Squamous Epithelial None Seen HPF (0-3); WBC/HPF 0-3 HPF (0-3); pH, Urine 5.5 (5.0-9.0)
[2023-04-15 12:18] LABS: Urine Culture Reflex No No
[2023-04-15] MEDS ORDERED: Potassium Chloride 20 MEQ TAB ONE (14:31)
[2023-04-15] MEDS ORDERED: Aspirin Chewable 81 MG TAB ONE (14:32)
[2023-04-15] MEDS ORDERED: Magnesium 2 GM/50 ML BAG (IN WATER) ONE (14:32)
[2023-04-15] MEDS ORDERED: NS 0.9% w/ 20 MEQ KCL 1,000 ML ONE (14:43)
[2023-04-15] MEDS ORDERED: Iopamidol-370 76% 500 ML MDV (1 ML CHARGE) ONE (15:40)
[2023-04-15] MEDS ORDERED: Ondansetron ODT 4 MG TAB PO PRN (16:31)
[2023-04-15] MEDS ORDERED: Calcium Carbonate 500 MG ChewTAB PO PRN (16:59)
[2023-04-15] MEDS ORDERED: Acetaminophen 325 MG TAB PO PRN (16:59)
[2023-04-15] MEDS ORDERED: traMADol HCl 50 MG TAB PO PRN (16:59)
[2023-04-15] MEDS: Potassium Chloride 20 MEQ TAB PO SCH (17:58)
[2023-04-15 18:21] LABS: Hemoglobin A1c 4.9 % (4.0-6.0)
[2023-04-15 18:34] LABS: Cardiac Risk 4.5 (Less than 4.5)
[2023-04-15 18:36] LABS: Troponin I 0.079 ng/mL (< 0.028)
[2023-04-15] MEDS: Lactated Ringer's 1,000 ML IV SCH (18:42)
[2023-04-15] MEDS ORDERED: Amoxicillin/Potassium Clav 875 MG TAB ONE (20:57)
[2023-04-15] MEDS ORDERED: Gabapentin 300 MG CAP ONE (20:58)
[2023-04-15] MEDS ORDERED: DULoxetine 60 MG CAP ONE (20:58)
[2023-04-15] MEDS ORDERED: Metoprolol Tartrate 25 MG TAB ONE (20:58)
[2023-04-15] MEDS: DULoxetine 60 MG CAP PO SCH (21:10)
[2023-04-15] MEDS: Gabapentin 300 MG CAP PO SCH (21:10)
[2023-04-15] MEDS: Metoprolol Tartrate 50 MG TAB PO SCH (21:11)
[2023-04-15] MEDS: Amoxicillin/Potassium Clav 875 MG TAB PO SCH (21:11)
[2023-04-16 01:44] LABS: Troponin I 0.079 ng/mL (< 0.028)
[2023-04-16] MEDS: Melatonin 3 MG TAB PO SCH (02:56)
[2023-04-16] MEDS: Sucralfate 1 GM TAB PO SCH (02:56)
[2023-04-16] MEDS: Bumetanide 1 MG TAB PO SCH (02:56)
[2023-04-16] MEDS: Liothyronine Sodium 5 MCG TAB PO SCH (02:56)
[2023-04-16 03:07] VITALS: BMI 24.8
[2023-04-16] MEDS: Levothyroxine Sodium 125 MCG TAB PO SCH (04:51)
[2023-04-16 06:13] LABS: #Eosinphils 0.1 thou/uL (0.0-0.7); #Monocytes 0.8 thou/uL (0.11-0.59); #Neutrophils 8.5 thou/uL (1.40-6.50); %Basophils 0.3 % (0.0-1.0); %Eosinophils 1.2 % (0.0-10.0); %Lymphocytes 5.2 % (21.0-51.0); %Monocytes 8.1 % (0.0-10.0); %Neutrophils 84.4 % (42.0-75.0); Hematocrit 31.4 % (36.0-47.0); Hemoglobin 9.8 g/dL (12.0-16.0); Mean Corpuscular HGB CONC 31.2 g/dL (32.0-36.0); Mean Corpuscular Volume 83.3 fl (78.0-98.0); Mean Platelet Volume 10.1 fL (7.4-10.4); Platelet Count 231 10x3/uL (130-400); RBC Distribution Width 17.1 % (11.5-14.5); Red Blood Cell (RBC) Count 3.77 mill/uL (4.20-5.40)
[2023-04-16 06:33] LABS: ALT (SGPT) 12 U/L (8-55); AST (SGOT) 21 U/L (5-34); Albumin 2.3 g/dL (3.4-4.8); Alkaline Phosphatase 58 U/L (40-110); Anion Gap 13 mmol/L (10-20); BUN (Urea Nitrogen) 13 mg/dL (9.8-20.1); Bilirubin, Total 0.4 mg/dL (0.2-1.2); Calc. Creatinine Clearance 51 mL/min (70-130); Calcium 7.6 mg/dL (7.8-10.44); Carbon Dioxide 29 mmol/L (23-31); Chloride 97 mmol/L (98-107); Estimated GFR 57; Globulin 2.9 g/dL (2.4-3.5); Glucose 72 mg/dL (83-110); Protein, Total 5.2 g/dL (5.8-8.1); Sodium 136 mmol/L (136-145)
[2023-04-16] MEDS: Digoxin 0.125 MG TAB PO SCH (08:59)
[2023-04-16] MEDS: Aspirin 81 mg Enteric Coated Tablet PO SCH (09:10)
[2023-04-16] MEDS: Cholecalciferol 1,000 UNITS (25 MCG) TAB PO SCH (09:11)
[2023-04-16] MEDS: Dextrose 5 %-0.45 % NaCl 1,000 ML IV SCH (11:23)
[2023-04-16] MEDS: Potassium Chloride 20 MEQ in Premix 1 BAG IVPB SCH (11:24)
[2023-04-16] MEDS: Metoprolol Tartrate 25 MG TAB PO SCH (20:34)
[2023-04-17 05:15] LABS: #Basophils 0.1 thou/uL (0.0-0.2); #Eosinphils 0.6 thou/uL (0.0-0.7); #Monocytes 0.8 thou/uL (0.11-0.59); #Neutrophils 6.5 thou/uL (1.40-6.50); %Basophils 0.6 % (0.0-1.0); %Eosinophils 6.3 % (0.0-10.0); %Lymphocytes 9.2 % (21.0-51.0); %Monocytes 8.9 % (0.0-10.0); %Neutrophils 74.2 % (42.0-75.0); Hemoglobin 9.2 g/dL (12.0-16.0); Mean Corpuscular HGB CONC 30.7 g/dL (32.0-36.0); Mean Corpuscular Hemoglobin 25.9 pg (27.0-31.0); Mean Corpuscular Volume 84.5 fl (78.0-98.0); Mean Platelet Volume 10.8 fL (7.4-10.4); Platelet Count 243 10x3/uL (130-400); Red Blood Cell (RBC) Count 3.55 mill/uL (4.20-5.40); White Blood Cell (WBC) Count 8.7 10x3/uL (4.8-10.8)
[2023-04-17 05:47] LABS: ALT (SGPT) 12 U/L (8-55); AST (SGOT) 22 U/L (5-34); Albumin 2.2 g/dL (3.4-4.8); Alkaline Phosphatase 57 U/L (40-110); Anion Gap 11 mmol/L (10-20); BUN (Urea Nitrogen) 12 mg/dL (9.8-20.1); Bilirubin, Total 0.3 mg/dL (0.2-1.2); Calc. Creatinine Clearance 58 mL/min (70-130); Calcium 7.5 mg/dL (7.8-10.44); Carbon Dioxide 29 mmol/L (23-31); Chloride 99 mmol/L (98-107); Estimated GFR 65; Globulin 2.8 g/dL (2.4-3.5); Glucose 119 mg/dL (83-110); Potassium 3.5 mmol/L (3.5-5.1); Sodium 135 mmol/L (136-145)
[2023-04-17 07:55] LABS: Magnesium 1.8 mg/dL (1.6-2.6)
[2023-04-17 10:17] LABS: Phosphorus 3.1 mg/dL (2.3-4.7)
[2023-04-17] MEDS ORDERED: Lidocaine 2% PF 5 ML VIAL ONE (10:29)
[2023-04-17] MEDS ORDERED: PROPOFOL 40 ML ONE (10:29)
[2023-04-17] MEDS ORDERED: ePHEDrine Sulfate 50 MG/10 ML VIAL ONE (10:50)
[2023-04-17] MEDS: Dextrose 5 %-0.45 % NaCl 1,000 ML IV SCH (11:57)
[2023-04-17] MEDS: LevoFLOXacin 250 MG TAB PO SCH (12:06)
[2023-04-18 05:27] LABS: #Basophils 0.1 thou/uL (0.0-0.2); #Eosinphils 0.5 thou/uL (0.0-0.7); #Monocytes 0.9 thou/uL (0.11-0.59); #Neutrophils 5.4 thou/uL (1.40-6.50); %Basophils 0.6 % (0.0-1.0); %Eosinophils 6.7 % (0.0-10.0); %Lymphocytes 11.3 % (21.0-51.0); %Monocytes 11.2 % (0.0-10.0); %Neutrophils 69.8 % (42.0-75.0); Hematocrit 30.1 % (36.0-47.0); Hemoglobin 9.3 g/dL (12.0-16.0); Mean Corpuscular HGB CONC 30.9 g/dL (32.0-36.0); Mean Corpuscular Hemoglobin 26.3 pg (27.0-31.0); Mean Platelet Volume 10.3 fL (7.4-10.4); Platelet Count 194 10x3/uL (130-400); Red Blood Cell (RBC) Count 3.54 mill/uL (4.20-5.40); White Blood Cell (WBC) Count 7.8 10x3/uL (4.8-10.8)
[2023-04-18 05:48] LABS: ALT (SGPT) 10 U/L (8-55); AST (SGOT) 16 U/L (5-34); Albumin 2.1 g/dL (3.4-4.8); Alkaline Phosphatase 61 U/L (40-110); Anion Gap 10 mmol/L (10-20); BUN (Urea Nitrogen) 9 mg/dL (9.8-20.1); Bilirubin, Total 0.3 mg/dL (0.2-1.2); Calc. Creatinine Clearance 62 mL/min (70-130); Calcium 7.5 mg/dL (7.8-10.44); Carbon Dioxide 25 mmol/L (23-31); Chloride 102 mmol/L (98-107); Estimated GFR 71; Globulin 2.7 g/dL (2.4-3.5); Glucose 111 mg/dL (83-110); Potassium 3.6 mmol/L (3.5-5.1); Protein, Total 4.8 g/dL (5.8-8.1); Sodium 133 mmol/L (136-145)
[2023-04-18] MEDS: Polyethylene Glycol 3350 17 GM Packet PO SCH (08:30)
[2023-04-18] MEDS: Metoprolol Tartrate 25 MG TAB PO SCH (20:37)
[2023-04-18] MEDS ORDERED: Apixaban 5 MG TAB PO SCH (21:00)
[2023-04-19 07:49] LABS: #Eosinphils 0.3 thou/uL (0.0-0.7); #Monocytes 0.8 thou/uL (0.11-0.59); #Neutrophils 5.8 thou/uL (1.40-6.50); %Basophils 0.5 % (0.0-1.0); %Eosinophils 3.3 % (0.0-10.0); %Lymphocytes 10.7 % (21.0-51.0); %Monocytes 10.1 % (0.0-10.0); %Neutrophils 74.6 % (42.0-75.0); Hematocrit 30.7 % (36.0-47.0); Hemoglobin 9.6 g/dL (12.0-16.0); Mean Corpuscular HGB CONC 31.3 g/dL (32.0-36.0); Mean Corpuscular Hemoglobin 26.1 pg (27.0-31.0); Mean Corpuscular Volume 83.4 fl (78.0-98.0); Mean Platelet Volume 10.1 fL (7.4-10.4); Platelet Count 241 10x3/uL (130-400); RBC Distribution Width 17.2 % (11.5-14.5); Red Blood Cell (RBC) Count 3.68 mill/uL (4.20-5.40); White Blood Cell (WBC) Count 7.8 10x3/uL (4.8-10.8)
[2023-04-19 08:13] LABS: ALT (SGPT) 11 U/L (8-55); AST (SGOT) 19 U/L (5-34); Alkaline Phosphatase 69 U/L (40-110); Anion Gap 10 mmol/L (10-20); BUN (Urea Nitrogen) 6 mg/dL (9.8-20.1); Bilirubin, Total 0.3 mg/dL (0.2-1.2); Calc. Creatinine Clearance 67 mL/min (70-130); Calcium 7.7 mg/dL (7.8-10.44); Carbon Dioxide 24 mmol/L (23-31); Chloride 102 mmol/L (98-107); Estimated GFR 78; Glucose 118 mg/dL (83-110); Potassium 3.6 mmol/L (3.5-5.1); Sodium 132 mmol/L (136-145)
[2023-04-19] MEDS: Lactulose 20 GM (30 mL) UDCUP PO SCH (08:57)
[2023-04-19] MEDS: Megestrol Acetate 800 MG/20 ML UDCUP PO SCH (08:57)
[2023-04-19] MEDS ORDERED: Megestrol Acetate 400 MG/10 ML UDCUP PO SCH (09:00)
[2023-04-20] MEDS: Ipratropium/Albuterol 3 ML NEB NEB PRN (00:02)
[2023-04-20 00:32] LABS: Troponin I 0.108 ng/mL (< 0.028)
[2023-04-20 04:14] LABS: #Basophils 0.1 thou/uL (0.0-0.2); #Eosinphils 0.2 thou/uL (0.0-0.7); #Monocytes 0.8 thou/uL (0.11-0.59); #Neutrophils 7.5 thou/uL (1.40-6.50); %Basophils 0.7 % (0.0-1.0); %Eosinophils 1.6 % (0.0-10.0); %Lymphocytes 7.7 % (21.0-51.0); %Monocytes 8.1 % (0.0-10.0); Hematocrit 30.6 % (36.0-47.0); Hemoglobin 9.5 g/dL (12.0-16.0); Mean Corpuscular Hemoglobin 25.7 pg (27.0-31.0); Mean Corpuscular Volume 82.9 fl (78.0-98.0); Mean Platelet Volume 10.4 fL (7.4-10.4); Platelet Count 236 10x3/uL (130-400); RBC Distribution Width 17.2 % (11.5-14.5); Red Blood Cell (RBC) Count 3.69 mill/uL (4.20-5.40); White Blood Cell (WBC) Count 9.2 10x3/uL (4.8-10.8)
[2023-04-20 04:43] LABS: Troponin I 0.111 ng/mL (< 0.028)
[2023-04-20 04:44] LABS: ALT (SGPT) 11 U/L (8-55); AST (SGOT) 14 U/L (5-34); Albumin 2.1 g/dL (3.4-4.8); Alkaline Phosphatase 76 U/L (40-110); Anion Gap 11 mmol/L (10-20); BUN (Urea Nitrogen) 8 mg/dL (9.8-20.1); Bilirubin, Total 0.4 mg/dL (0.2-1.2); Calc. Creatinine Clearance 64 mL/min (70-130); Calcium 8.1 mg/dL (7.8-10.44); Carbon Dioxide 25 mmol/L (23-31); Chloride 102 mmol/L (98-107); Estimated GFR 74; Glucose 92 mg/dL (83-110); Potassium 3.3 mmol/L (3.5-5.1); Protein, Total 5.1 g/dL (5.8-8.1); Sodium 135 mmol/L (136-145)
[2023-04-20] MEDS: Saccharomyces boulardii 250 MG CAP PO SCH (09:38)
[2023-04-20] MEDS: Potassium Chloride 20 MEQ TAB PO SCH (09:40)
[2023-04-20 12:15] VITALS: BP 112/56; TEMP 97.8
== END 2023-04-20 15:02 | disposition hospice, home (50) | DRG 381 ==
LOC: ERS 09:43 → ERHOLD 16:36 → 2NO 04-16 02:42 → OBSVTOIN 04-17 09:04
PROVIDERS: ADMIT Emergency Medicine; ATTEND Student in an Organized Health Care Education/Training Program
PROC: 0DJ08ZZ Inspection of Upper Intestinal Tract, Via Natural or Artificial Opening Endoscopic (ICD-10-PCS; principal; 2023-04-17)
DX: K22.11 Ulcer of esophagus with bleeding (principal); E87.1 Hypo-osmolality and hyponatremia; I50.32 Chronic diastolic (congestive) heart failure; N39.0 Urinary tract infection, site not specified; N17.9 Acute kidney failure, unspecified; I48.19 Other persistent atrial fibrillation; J44.9 Chronic obstructive pulmonary disease, unspecified; F64.9 Gender identity disorder, unspecified; F41.1 Generalized anxiety disorder; E03.9 Hypothyroidism, unspecified; E86.0 Dehydration; E83.42 Hypomagnesemia; E87.6 Hypokalemia; R62.7 Adult failure to thrive; E16.2 Hypoglycemia, unspecified; I11.0 Hypertensive heart disease with heart failure; R53.81 Other malaise; K59.00 Constipation, unspecified; R33.9 Retention of urine, unspecified; K44.9 Diaphragmatic hernia without obstruction or gangrene; G62.9 Polyneuropathy, unspecified; E78.5 Hyperlipidemia, unspecified; Z68.24 Body mass index [BMI] 24.0-24.9, adult; Z79.899 Other long term (current) drug therapy; Z86.73 Personal history of transient ischemic attack (TIA), and cerebral infarction without residual deficits; Z88.5 Allergy status to narcotic agent; Z79.82 Long term (current) use of aspirin; Z98.890 Other specified postprocedural states; Z90.710 Acquired absence of both cervix and uterus; Z79.01 Long term (current) use of anticoagulants; R63.4 Abnormal weight loss
CPT/HCPCS: 36415; 36416; 51798; 71045; 74177; 80053; 80061; 80162; 81001; 83036; 83605; 83690; 83735; 83880; 84100; 84443; 84484; 85025; 85610; 85730; 87040; 93005; 93010; 94640; 96365; 96367; 96376; G0378; J2001; J2704; J3475; J3480; J7042; J7120; J7620; Q9967